=== PATIENT | female | born 1970 | race Caucasian/White ===

== ENCOUNTER → 2018-10-05 17:00 | Outpatient (CLI) | payer OTHER, SELFPAY ==
[2018-10-05 14:53] VITALS: BMI 24.0
[2018-10-08 11:00] LABS: HPV APTIMA, High Risk Negative (Negative)
== END ==
PROVIDERS: Family Provider Family Medicine; PCP Family Medicine; Referring Provider Obstetrics & Gynecology; Visit Provider Obstetrics & Gynecology
DX: Z12.4 Encounter for screening for malignant neoplasm of cervix (principal)
CPT/HCPCS: 87624; 88175; G0145

== ENCOUNTER → 2018-11-02 | Outpatient (CLI) | payer OTHER, SELFPAY ==
[2018-10-05 14:53] VITALS: BMI 24.0
--- NOTE | 2018-11-02 15:24 | BI_ITS ---
MAMMOGRAPHY - BILATERAL SCREENING REASON FOR EXAM: Female, 48 years old. Routine annual screening examination. PERTINENT HISTORY: Non-contributory. TECHNIQUE: Digital bilateral breast gisela (3D mammographic acquisition) in the CC and MLO projections. 2-D mediolateral oblique (MLO) and craniocaudad (CC) views of both breasts were obtained. CAD: Full Field Digital Mammography with Computer Added Detection was performed. COMPARISON: Comparison is made with prior outside examination dated September 14, 2017. FINDINGS: Breast Composition: The breasts are heterogeneously dense, which may obscure small masses. There are no dominant masses or suspicious calcifications. No other significant abnormalities are identified. There has been no significant change since the prior study. BI/SCREENING MAMM (CAD), BILAT IMPRESSION: Stable bilateral screening mammogram. Yearly follow-up mammogram recommended. (A) ASSESSMENT CATEGORY: BIRADS Category 1: Negative. A letter regarding these results will be sent to the patient by the facility within 30 days. Approximately 10% of breast cancers are not detected by mammography. A normal mammogram should not delay biopsy of a clinically suspicious abnormality. [id number] Electronically Signed: Cole Amaya, at 11:18 EDT , Service support ,
== END | disposition home or self-care (01) ==
PROVIDERS: Family Provider Family Medicine; PCP Family Medicine; Referring Provider Obstetrics & Gynecology; Visit Provider Obstetrics & Gynecology
DX: Z12.31 Encounter for screening mammogram for malignant neoplasm of breast (principal)
CPT/HCPCS: 77063; 77067

== ENCOUNTER → 2020-06-14 15:19 | Outpatient (CLI) | payer OTHER, SELFPAY ==
[2018-10-05 14:53] VITALS: BMI 24.0
== END ==
PROVIDERS: PCP Family Medicine; Visit Provider Family Medicine
DX: B34.9 Viral infection, unspecified (principal)
CPT/HCPCS: 87635; U0003

== ENCOUNTER 2020-11-09 06:52 | Day surgery (SDC) | payer BC, SELFPAY ==
[2018-10-05 14:53] VITALS: BMI 24.0
[2020-11-09] MEDS: Lactated Ringers 1,000 ML 100 ML IV (07:15)
[2020-11-09 07:16] VITALS: BP 126/76; PULSE 76; RESP 16; TEMP 36.8; O2SAT 96; BMI 24.5
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
[2020-11-09 08:12] VITALS: BP 101/58; BP 126/76; PULSE 65; RESP 18; TEMP 36.5; O2SAT 99
--- NOTE | 2020-11-09 08:14 | OP.CCLET_ITS ---
11/09/2020 Chavo George [address] [place] [address] Re : Colonoscopy procedure for Barbara Young Dear Dr. George This procedure was performed on Monday, November 09, 2020. My impressions and recommendations are as follows: Impressions : - The entire examined colon is normal on direct and retroflexion views. - No specimens collected. Recommendations : - Discharge patient to home. - Resume previous diet. - Continue present medications. - Repeat colonoscopy in 10 years for screening purposes. My findings are described in the full procedure note, which is enclosed. If I can be of further assistance, please feel free to contact me at Doctor phone number(s): , Work: . Sincerely, Amado Costa MD 11/09/2020 8:14:04 AM This report has been signed electronically.
--- NOTE | 2020-11-09 08:14 | OP.COLON_ITS ---
Patient Name: Barbara Young Procedure Date: 11/09/2020 7:47 AM Date of : 1970 Age: 50 Procedure: Colonoscopy Indications: Screening for colorectal malignant neoplasm Providers: Amado Costa MD Referring MD: Chavo George Medicines: Monitored Anesthesia Care Patient Profile: This is a 50 year old female. Refer to note in patient chart for documentation of history and physical. Last Colonoscopy: none. The patient's first colonoscopy is today. Complications: No immediate complications. Procedure: Pre-Anesthesia Assessment: - Prior to the procedure, a History and Physical was performed, and patient medications and allergies were reviewed. The patient's tolerance of previous anesthesia was also reviewed. The risks and benefits of the procedure and the sedation options and risks were discussed with the patient. All questions were answered, and informed consent was obtained. Prior Anticoagulants: The patient has taken no previous anticoagulant or antiplatelet agents. After reviewing the risks and benefits, the patient was deemed in satisfactory condition to undergo the procedure. After I obtained informed consent, the scope was passed under direct vision. Throughout the procedure, the patient's blood pressure, pulse, and oxygen saturations were monitored continuously. The colonoscope was introduced through the anus and advanced to the cecum, identified by appendiceal orifice and ileocecal valve. The colonoscopy was performed without difficulty. The patient tolerated the procedure well. The quality of the bowel preparation was good. Scope In: 7:55:19 AM Scope Withdrawal Time 0 hours 6 minutes 0 seconds Scope Out: 8:08:25 AM Total Procedure Duration Time 0 hours 13 minutes 6 seconds Findings: The entire examined colon appeared normal on direct and retroflexion views. Impression: - The entire examined colon is normal on direct and retroflexion views. - No specimens collected. Recommendation: - Discharge patient to home. - Resume previous diet. - Continue present medications. - Repeat colonoscopy in 10 years for screening purposes. Procedure Code(s): --- Professional --- 37443, Colonoscopy, flexible; diagnostic, including collection of specimen(s) by brushing or washing, when performed (separate procedure) Diagnosis Code(s): --- Professional --- Z12.11, Encounter for screening for malignant neoplasm of colon CPT copyright 2017 [employer]. All rights reserved. The codes documented in this report are preliminary and upon side stitching machine operator review may be revised to meet current compliance requirements. Amado Costa MD 11/09/2020 8:14:04 AM This report has been signed electronically. Number of Addenda: 0 Note Initiated On: 11/09/2020 7:47 AM
[2020-11-09 08:15] VITALS: BP 101/66; BP 126/76; PULSE 63; RESP 18; O2SAT 98
[2020-11-09 08:20] VITALS: BP 103/69; BP 126/76; PULSE 60; RESP 18; O2SAT 99
[2020-11-09 08:25] VITALS: BP 104/74; BP 126/76; PULSE 57; RESP 18; TEMP 36.7; O2SAT 99
[2020-11-09 09:22] VITALS: BP 126/76
== END 2020-11-09 09:23 | disposition home or self-care (01) ==
LOC: EN 06:53 → AC 06:55
PROVIDERS: PCP Family Medicine; Referring Provider Family Medicine; Visit Provider Surgery
PROC: 0DJD8ZZ Inspection of Lower Intestinal Tract, Via Natural or Artificial Opening Endoscopic (ICD-10-PCS; CPT 45378; principal; 2020-11-09 07:55)
DX: Z12.11 Encounter for screening for malignant neoplasm of colon (principal); F32.9 Major depressive disorder, single episode, unspecified; F41.9 Anxiety disorder, unspecified; F17.210 Nicotine dependence, cigarettes, uncomplicated; Z79.899 Other long term (current) drug therapy
CPT/HCPCS: 45378; 87426; C9803; J7120; J2405

== ENCOUNTER → 2021-01-07 15:28 | Outpatient (CLI) | payer BC, SELFPAY ==
[2021-01-07 17:59] LABS: Absolute Lymphocyte Count 2.58 X10^3/uL (0.83-4.51); Absolute Neutrophil Count 4.3 X10^3/uL (2.0-7.7); Basophil# 0.04 X10^3/uL; Basophil% 0.5 % (0-1); Hematocrit 37.8 % (37-47); Hemoglobin 12.2 g/dL (12.0-15.0); Lymphocyte # 2.58 X10^3/ul (0.83-4.51); Lymphocyte % 34.5 % (19-41); Mean Corp Hgb Conc 32.3 g/dL (32-36); Mean Platelet Vol. 9.1 fl (6.2-12.0); Monocyte# 0.52 X10^3/uL; NRBC Flagged by Analyzer 0 % (0-5); Neutrophil # 4.31 X10^3/uL (2.7-7.7); Neutrophil % 57.7 % (47-70); Platelet Count 394 K/mm3 (150-450); RBC Distribution Width CV 12.1 % (11.6-14.6); RBC Distribution Width SD 39.8 fl (35.1-43.9); White Blood Count 7.5 K/mm3 (4.4-11.0)
[2021-01-07 18:02] LABS: Erythrocyte Sedimentation Rate 21 mm/hr (0-30)
[2021-01-07 18:26] LABS: T4 Free Direct 1.26 ng/dL (0.76-1.46); Thyroid Stim Hormone (TSH) 0.12 uIU/mL (0.358-3.74)
== END ==
PROVIDERS: PCP Family Medicine; Visit Provider Family Medicine
DX: J30.9 Allergic rhinitis, unspecified (principal); E07.89 Other specified disorders of thyroid
CPT/HCPCS: 36415; 84439; 84443; 85025; 85652; 86140

== ENCOUNTER → 2021-01-09 11:32 | Outpatient (CLI) | payer BC, SELFPAY ==
[2021-01-11 21:15] LABS: Anti-Thyroglobulin AB < 1.0 IU/mL (0.0-0.9); Thyroglobulin, Serum Qt. 433.1 ng/mL (1.5-38.5); Thyroid Peroxidase AB < 9 IU/mL (0-34)
== END ==
PROVIDERS: PCP Family Medicine; Referring Provider Family Medicine; Visit Provider Family Medicine
DX: E07.89 Other specified disorders of thyroid (principal)
CPT/HCPCS: 36415; 84432; 86038; 86376; 86800

== ENCOUNTER → 2021-01-11 14:17 | Outpatient (CLI) | payer BC, SELFPAY ==
--- NOTE | 2021-01-11 14:19 | US_ITS ---
STUDY: THYROID ULTRASOUND REASON FOR EXAM: Female, 50 years old. Low ESR hyperactive thyroid TECHNIQUE: Ultrasound evaluation of the thyroid was performed with real-time and static fuentes-scale imaging. COMPARISON: None. FINDINGS: RIGHT LOBE: The right lobe of the thyroid gland measures 5 cm x 1.7 cm x 1.5 cm. There is a heterogeneous echotexture. There is a 5 mm x 5 mm x 4 mm cyst in the lower pole of the right lobe. There is also evidence of a 9 mm x 9 mm x 9 mm hypoechoic solid nodule in the midpole of the right lobe. LEFT LOBE: The left lobe of the thyroid gland measures 4.9 cm x 1.9 cm x 1.6 cm. There is a heterogeneous echotexture. There are no demonstrated solid, cystic or complex lesions. ISTHMUS: The isthmus measures 3.4 mm. There is a benign-appearing lymph node inferior to the thyroid measuring 1.3 cm x 1 cm x 0.7 cm. US/Thyroid IMPRESSION: Heterogeneous appearance of the thyroid lobes bilaterally. 9 mm x 9 mm x 9 mm heterogeneous solid nodule in the midpole of the right lobe. Electronically Signed: Cole Amaya MD at 15:14 EDT , Service support ,
== END ==
PROVIDERS: PCP Family Medicine; Referring Provider Family Medicine; Visit Provider Family Medicine
DX: E07.89 Other specified disorders of thyroid (principal)
CPT/HCPCS: 76536

== ENCOUNTER → 2021-01-14 09:16 | Outpatient (CLI) | payer BC, SELFPAY ==
--- NOTE | 2021-01-14 09:21 | RAD_ITS ---
STUDY: X-RAY - SOFT TISSUE NECK REASON FOR EXAM: Female, 50 years old. SWALLOWING DIFFICULTY TECHNIQUE: view(s) of the neck were obtained. COMPARISON: None. FINDINGS: Normal visualized nasopharynx, oropharynx, hypopharynx. Normal epiglottis. Normal visualized subglottic tracheal air column. Normal prevertebral soft tissue structures. Normal visualized osseous structures. Slight narrowing seen at the level of C6-7. The soft tissue structures are unremarkable. RAD/Neck for Soft Tissue IMPRESSION: Normal x-ray soft tissue neck. Electronically Signed: Cecily Swan, at 14:11 EDT Tel , Service support ,
--- NOTE | 2021-01-14 09:21 | RAD_ITS ---
STUDY: X-RAY CHEST REASON FOR EXAM: Female, 50 years old. CHEST PAIN TECHNIQUE: 2 views COMPARISON: 10/27/2015. FINDINGS: The lungs are clear and expanded. There is no demonstrated pleural abnormality. Normal size heart. Normal mediastinum and dede. Normal visualized pulmonary arteries. Normal visualized aortic arch and descending thoracic aorta. Normal visualized thoracic spine. Normal visualized ribs, clavicles, and shoulders. There is no demonstrated abnormality of the visualized soft tissue structures of the upper abdomen. RAD/Chest PA and Lateral IMPRESSION: Normal x-ray examination of the chest. Unchanged since October 2015. Electronically Signed: Cecily Swan, at 14:09 EDT Tel , Service support ,
== END ==
PROVIDERS: PCP Family Medicine; Referring Provider Family Medicine; Visit Provider Family Medicine
DX: R07.9 Chest pain, unspecified (principal); R13.10 Dysphagia, unspecified
CPT/HCPCS: 70360; 71046

== ENCOUNTER → 2021-01-23 09:48 | Outpatient (CLI) | payer BC, SELFPAY ==
--- NOTE | 2021-01-23 09:49 | NM_ITS ---
CLINICAL: 50-year-old female with reported history of clinical thyroiditis and thyroid nodularity. I-123 THYROID UPTAKE and SCAN COMPARISON: Thyroid ultrasound report 01/11/2021 FINDINGS: The patient was administered a 305 uCi I-123 capsule by mouth. The 4-hour I-123 radioactive iodine thyroidal uptake was calculated to be 1.5 % (normal 5 to 25 %). The 24-hour I-123 radioactive iodine thyroidal uptake was calculated to be 0.3 % (normal 5 to 40 %). The I-123 thyroid scan demonstrates nonvisualization of the thyroid colloid commensurate with the IODINE uptake values. NM/Thyroid Uptake Single or Mult IMPRESSION: 1. MARKEDLY ABNORMAL, DECREASED 4- and 24-hour I-123 radioactive iodine thyroidal uptakes. 2. The I-123 thyroid scan in conjunction with the calculated IODINE uptake values is most consistent with the presence of the injurious phase of subacute thyroiditis. (Dallin et al, Endocrinol Rev 1: 411, 1980). Electronically Signed: Gurdeep Devine DO at 22:53 EDT Tel , Service support ,
== END ==
PROVIDERS: PCP Family Medicine; Referring Provider Family Medicine; Visit Provider Family Medicine
DX: E06.9 Thyroiditis, unspecified (principal)
CPT/HCPCS: 78012; A9516

== ENCOUNTER → 2021-03-25 17:03 | Outpatient (CLI) | payer BC, SELFPAY ==
[2021-03-25 19:39] LABS: Probe Check PASS; Specimen Processing Control PASS
== END ==
PROVIDERS: PCP Family Medicine; Referring Provider Family Medicine; Visit Provider Family Medicine
DX: Z20.822 Contact with and (suspected) exposure to COVID-19 (principal)
CPT/HCPCS: 87635; U0005; U0003

== ENCOUNTER → 2021-04-23 15:06 | Outpatient (CLI) | payer BC, SELFPAY ==
[2021-04-23 15:21] LABS: Bacteria 0 SEEN /hpf (None Seen); Mucous, Urine 0 SEEN /hpf (<or=2+); Red Blood Cells-Urine 0 SEEN /hpf (0-5); Squamous Epithelial Cells - UA 0 SEEN /hpf (5-10); White Blood Cells 0 SEEN /hpf (0-5)
[2021-04-23 15:35] LABS: Color, Urine Yellow (Yellow); Glucose, Dipstick Normal (Normal); Ketone-Dipstick Negative (Negative); Leukocyte Esterase-Dipstick Negative /ul (Negative); Nitrite-Dipstick Negative (Negative); Occult Blood-Urine 10 /ul (Negative); Protein-Dipstick Negative (Negative); Urine Bilirubin Dipstick Negative (Negative); Urine Clarity Clear (Clear); Urine Urobilinogen Normal (Normal)
== END ==
PROVIDERS: PCP Family Medicine; Referring Provider Physician Assistant; Visit Provider Physician Assistant
DX: R30.9 Painful micturition, unspecified (principal); R35.0 Frequency of micturition; R10.2 Pelvic and perineal pain
CPT/HCPCS: 81001; 87086; 87088

== ENCOUNTER 2021-06-10 14:39 | Emergency (ER) | payer BC, SELFPAY ==
[2021-06-10 14:39] VITALS: BP 121/93; PULSE 98; RESP 16; TEMP 37.7; O2SAT 96; BMI 24.4
--- NOTE | 2021-06-10 15:22 | US_ITS ---
STUDY: ULTRASOUND OF THE FEMALE PELVIS - COMPLETE REASON FOR EXAM: Female, 50 years old. pelvic pain-RLQ TECHNIQUE: Transabdominal COMPARISON: None. FINDINGS: The uterus is retroverted and is in a midline position. The uterus measures 3.9 x 4 .3 cm. There is a Nabothian cyst of the cervix. The endometrium measures 2 mm in thickness, and is hyperechoic. There is no demonstrated endometrial mass. There is no demonstrated myometrial mass. I.U.D. - The patient does not have an I.U.D. calcifications are visualized in the uterus. These may be related to fibroids. The right ovary is visualized. The right ovary measures 2.5x1.8 cm. There is no right ovarian cyst or ovarian mass. There is no visualized right adnexal mass or complex lesion. There is normal arterial and normal venous vascularity. The left ovary is visualized. The left ovary measures 2x1.3 cm. There is no left ovarian cyst or ovarian mass. There is no visualized left adnexal mass or complex lesion. There is normal arterial and normal venous vascularity. There is minimal fluid in the cul-de-sac. US/Transvaginal Non- IMPRESSION: There is a Nabothian cyst of the cervix. There is minimal fluid in the cul-de-sac. Electronically Signed: Lloyd Neely MD at 17:14 EST , Service support ,
--- NOTE | 2021-06-10 15:35 | EDS_ITS ---
HPI HPI - Female History of Present Illness Chief Complaint: Abd Pain Narrative Narrative: 50-year-old female presenting with pelvic pressure. She states it is more on the right than the left but sometimes does radiate to the left. She states this has been an ongoing issue. She was previously seen for urinary symptoms but states she had been on antibiotics for UTI however her urinalysis ended up being negative and these were stopped. Over the course of the last 3 days she has had a low-grade fever of 101. She was exposed to COVID-19 last week but has tested negative since then. She does not have any shortness of breath or cough. She denies chest pain. She denies vomiting, diarrhea, constipation. She denies vaginal complaints. Patient does states she has a history of ectopic in the past. She status post tubal ligation. She does not have a concern for at this time. PFSH PFS Medical History Anxiety and depression Medical History no medical history Home Medications hydroxyzine HCl 25 mg tablet 10 mg PO QHS 10/05/18 [History Last Taken Unknown] sertraline 100 mg tablet 150 mg PO QHS 10/05/18 [History Last Taken Unknown] Allergy/AdvReac Type Severity Reaction Status Date / Time No Known Allergies Allergy Verified 06/10/21 14:43 Family History Mother CVA (cerebral vascular accident) Surgical History H/O tubal ligation Social History Smoking Status: Current every day smoker tobacco type: cigarettes alcohol intake: never substance use type: does not use caffeine: Yes what type of physical activity do you participate in: yoga frequency: 1-2 times per week seatbelt use: always do you feel safe at home: Yes additional social history: Vince Ko Patient works for [employer] ROS ROS ED Constitutional Constitutional ED: Reports fever(s); Denies chills Eyes Eyes: Denies blurry vision ENT ENT ED: Denies rhinorrhea or sore throat Cardiovascular Cardiovascular: Denies chest pain or palpitations Respiratory/Chest Respiratory/Chest: Denies dyspnea Gastrointestinal Gastrointestinal: Reports abdominal pain; Denies constipation, diarrhea or vomiting Genitourinary Genitourinary ED: Reports dysuria and urinary frequency Musculoskeletal Musculoskeletal: Denies arthralgias or myalgias Integumentary Denies rash Neurologic Neurologic: Reports headache(s); Denies paresthesias or weakness Psychiatric Psychiatric: Denies anxiety or depression EXAM Physical Exam Const Vital Signs: 06/10/21 14:39 06/10/21 17:12 Temperature 100 F H 98.5 F Temperature Source Temporal Oral Pulse Rate 98 Respiratory Rate 16 Blood Pressure 121/93 H Blood Pressure Mean 102 Pulse Ox 96 Oxygen Delivery Method Room Air Positive well nourished General Appearance ED: NAD; Negative for pallor HEENT Reports moist mucous membranes Negative for trauma Resp normal respiratory effort and clear to auscultation bilaterally Narrative: Tenderness palpation right suprapubic area laterally. Abdomen nonperitoneal. No McBurney point tenderness. Back/Spine no CVA tenderness Neuro oriented x3 Sensorium / Orientation: alert Psych mental status grossly normal Skin General Skin Exam: Negative for jaundice or pallor MDM MDM MDM Narrative Medical decision making narrative: Patient presenting with low-grade fever as well as abdominal pain. It does seem to be pelvic in nature on examination. Patient is not having any vaginal complaints. She does complain of some dysuria and frequency. Patient was previously treated for urinary tract infection however she was told to stop the antibiotic if the culture was negative. Her CBC shows that she is leukopenic and lymphopenic. She did express some concern that she was exposed to Covid and that might be why she has fevers. She is already tested at home a couple of times and these were negative. Her rapid Covid today is also negative. Patient does not have any respiratory complaints or chest pain. Or chest pain. Her renal function and electrolytes are normal. LFTs are normal. Urinalysis is negative for infection. I did obtain a transvaginal ultrasound which showed a nabothian cyst of the cervix. Not sure this explains her pain so I did obtain a CT of the abdomen pelvis with IV contrast which showed no acute abnormalities. I did offer to do a Covid PCR for the patient however she declines. At this point with a negative work-up I feel she is safe to be discharged home. She will return for new or worsening symptoms. Impression: 1. Abdominal pain 2. Febrile illness 3. Exposure to COVID-19 4. Nabothian cyst of the cervix Lab Data Attestation: I reviewed the patient's lab results. Labs: Laboratory Results - last 24 hr 06/10/21 06/10/21 06/10/21 15:49 16:00 16:00 WBC 4.3 L RBC 4.39 Hgb 13.1 Hct 37.8 MCV 86.1 MCH 29.8 MCHC 34.7 RDW Std Deviation 42.1 RDW Coeff of Justin 13.3 Plt Count 253 MPV 8.8 Immature Gran % (Auto) 0.200 Neut % (Auto) 77.6 H Lymph % (Auto) 14.5 L Rabun % (Auto) 7.5 Eos % (Auto) 0.0 Baso % (Auto) 0.2 Absolute Neuts (auto) 3.3 Absolute Lymphs (auto) 0.62 L Nucleated RBC % 0 Sodium 132 L Potassium 4.0 Chloride 103 Carbon Dioxide 23.0 Anion Gap 6 BUN 8 Creatinine 0.88 Estim Creat Clear Calc 73.55 Est GFR (MDRD) Af Amer 87 Est GFR (MDRD) Non-Af 72 BUN/Creatinine Ratio 9.1 L Glucose 103 Calcium 8.9 Total Bilirubin 0.20 AST 28 ALT 46 Alkaline Phosphatase 79 Total Protein 7.5 Albumin 3.9 Globulin 3.6 Albumin/Globulin Ratio 1.1 HCG, Quant Urine Color Yellow Urine Clarity Sl. Cloudy Urine pH 6.5 Ur Specific [place] 1.010 Urine Protein Negative Urine Glucose (UA) Normal Urine Ketones Negative Urine Occult Blood 25 H Urine Nitrite Negative Urine Bilirubin Negative Urine Urobilinogen Normal Ur Leukocyte Esterase Negative Urine RBC 0 SEEN Urine WBC 0 SEEN Ur Squamous Epith Cells 0 SEEN Urine Bacteria RARE Urine Mucus 0 SEEN 06/10/21 16:00 WBC RBC Hgb Hct MCV MCH MCHC RDW Std Deviation RDW Coeff of Justin Plt Count MPV Immature Gran % (Auto) Neut % (Auto) Lymph % (Auto) Rabun % (Auto) Eos % (Auto) Baso % (Auto) Absolute Neuts (auto) Absolute Lymphs (auto) Nucleated RBC % Sodium Potassium Chloride Carbon Dioxide Anion Gap BUN Creatinine Estim Creat Clear Calc Est GFR (MDRD) Af Amer Est GFR (MDRD) Non-Af BUN/Creatinine Ratio Glucose Calcium Total Bilirubin AST ALT Alkaline Phosphatase Total Protein Albumin Globulin Albumin/Globulin Ratio HCG, Quant < 1 Urine Color Urine Clarity Urine pH Ur Specific [place] Urine Protein Urine Glucose (UA) Urine Ketones Urine Occult Blood Urine Nitrite Urine Bilirubin Urine Urobilinogen Ur Leukocyte Esterase Urine RBC Urine WBC Ur Squamous Epith Cells Urine Bacteria Urine Mucus Radiography Diagnostic Testing: Clinical Impression(s) from Imaging Studies Transvaginal US 06/10/21 15:22 IMPRESSION: There is a Nabothian cyst of the cervix. There is minimal fluid in the cul-de-sac. Electronically Signed: Lloyd Neely MD at 17:14 EST , Service support , Abdomen/Pelvis CT 06/10/21 17:19 Discharge Plan Triage Chief Complaint: Abd Pain ED Provider: Channing Parkinson Dx/Rx/DC Orders Instructions: ED Abdominal Pain Unkn Cause Fem, ED Fever Control (Adult) Prescriptions: No Action hydroxyzine HCl 25 mg tablet 10 mg PO QHS RF: 0 sertraline [Zoloft] 100 mg tablet 150 mg PO QHS RF: 0 Primary Care Provider: Chavo George Referrals: Chavo George MD [Primary Care Provider] - Disposition Disposition: Home, Self Care Discharge Date/Time: 06/10/21 18:21
[2021-06-10] MEDS: Acetaminophen 500 MG Tablet 1000 MG PO (15:41)
[2021-06-10 15:52] LABS: Mucous, Urine 0 SEEN /hpf (<or=2+); Red Blood Cells-Urine 0 SEEN /hpf (0-5); Squamous Epithelial Cells - UA 0 SEEN /hpf (5-10); White Blood Cells 0 SEEN /hpf (0-5)
[2021-06-10 15:56] LABS: Color, Urine Yellow (Yellow); Glucose, Dipstick Normal (Normal); Ketone-Dipstick Negative (Negative); Leukocyte Esterase-Dipstick Negative /ul (Negative); Nitrite-Dipstick Negative (Negative); Occult Blood-Urine 25 /ul (Negative); Protein-Dipstick Negative (Negative); Urine Bilirubin Dipstick Negative (Negative); Urine Clarity Sl. Cloudy (Clear); Urine Urobilinogen Normal (Normal); Urine pH 6.5 (5.0 - 8.0)
[2021-06-10 16:09] LABS: Absolute Lymphocyte Count 0.62 X10^3/uL (0.83-4.51); Absolute Neutrophil Count 3.3 X10^3/uL (2.0-7.7); Basophil# 0.01 X10^3/uL; Basophil% 0.2 % (0-1); Hematocrit 37.8 % (37-47); Hemoglobin 13.1 g/dL (12.0-15.0); Lymphocyte # 0.62 X10^3/ul (0.83-4.51); Lymphocyte % 14.5 % (19-41); Mean Corp Hgb Conc 34.7 g/dL (32-36); Mean Corpuscular Hgb 29.8 pg (27.0-32.0); Mean Corpuscular Volume 86.1 fL (81-99); Mean Platelet Vol. 8.8 fl (6.2-12.0); Monocyte# 0.32 X10^3/uL; Monocyte% 7.5 % (0-10); NRBC Flagged by Analyzer 0 % (0-5); Neutrophil # 3.32 X10^3/uL (2.7-7.7); Neutrophil % 77.6 % (47-70); Platelet Count 253 K/mm3 (150-450); RBC Distribution Width CV 13.3 % (11.6-14.6); RBC Distribution Width SD 42.1 fl (35.1-43.9); Red Blood Count 4.39 M/mm3 (4.2-5.4); White Blood Count 4.3 K/mm3 (4.4-11.0)
[2021-06-10 16:18] LABS: Bacteria RARE /hpf (None Seen)
[2021-06-10 16:36] LABS: ALB/GLOB Ratio 1.1 RATIO (0.9-2.4); AST(SGOT) 28 U/L (15-37); Alanine Aminotransfer ALT/SGPT 46 U/L (13-56); Albumin, Serum 3.9 g/dL (3.2-5.0); Alkaline Phosphatase 79 U/L (45-117); Anion Gap 6 (5-15); BUN 8 mg/dL (7-18); BUN/Creat Ratio 9.1 RATIO (10-20); Calcium,Total 8.9 mg/dL (8.5-10.1); Chloride 103 mmol/L (98-107); Creatinine, Serum 0.88 mg/dL (0.55-1.02); EST Glomerular Filtration Rate 72 mL/min (>60); Est Glom Filt Rate - Afr Amer 87 mL/min (>60); Estimated Creatinine Clearance 73.55 ml/min; Globulin 3.6 g/dL (2.2-4.2); Glucose 103 mg/dL (74-106); Protein, Total 7.5 g/dL (6.4-8.2); Sodium Level 132 mmol/L (136-145)
[2021-06-10 16:37] LABS: hCG Titer Quant., Serum < 1 mIU/mL (1-3)
[2021-06-10 17:12] VITALS: TEMP 36.9
--- NOTE | 2021-06-10 17:19 | CT_ITS ---
STUDY: CT Abdomen And Pelvis W/ Contrast Injection 06/10/2021 6:00 PM REASON FOR EXAM: Female, 50 years old. Technologist Notes pelvic pressure R>L being treated for UTI. Fever. H/o ectopic preg. RLQ abdominal pain TECHNIQUE: Transaxial images were obtained without oral contrast, and with IV 100mL Isovue-300 intravenous contrast. Individualized dose optimization techniques were used for this CT. COMPARISON: None. FINDINGS: The visualized lung bases are unremarkable. The visualized portions of the heart are within normal limits. There is hepatomegaly with diffuse hepatic enlargement. Normal gallbladder and extrahepatic biliary system. Normal spleen. Normal pancreas. Simple cyst in the right and left lobe of liver. No follow-up required. Normal bilateral adrenal glands. No acute findings of the right kidney. No acute findings of the left kidney. Retroaortic left renal vein. Normal visualized stomach. Normal small intestine. Stool throughout the colon. The appendix is visualized and appears normal. There are calcifications of the abdominal aorta. This is consistent for atherosclerotic disease. There is no abdominal aortic aneurysm. Normal inferior vena cava. Subcentimeter mesenteric lymph nodes. Normal urinary bladder. Normal visualized uterus. There are bilateral tubal ligation clips. There is an umbilical hernia containing fat. Normal osseous structures. IMPRESSION: (NOT LISTED IN ORDER OF SIGNIFICANCE) Enlarged liver. The appendix is visualized and appears normal. Other findings as above. Electronically Signed: Lloyd Neely MD at 18:02 EST , Service support , CT/Abdomen/Pelvis W IV Cont ONLY
== END 2021-06-10 18:21 | disposition home or self-care (01) ==
PROVIDERS: Emergency Provider Student in an Organized Health Care Education/Training Program; PCP Family Medicine
DX: R10.2 Pelvic and perineal pain (principal); R50.9 Fever, unspecified; N88.8 Other specified noninflammatory disorders of cervix uteri; Z87.59 Personal history of other complications of pregnancy, childbirth and the puerperium; F41.9 Anxiety disorder, unspecified; F32.A Depression, unspecified; Z79.899 Other long term (current) drug therapy; Z20.822 Contact with and (suspected) exposure to COVID-19
CPT/HCPCS: 74177; 76830; 80053; 81001; 84702; 85025; 87426; 87635; 93976; 99284; Q9967; U0005; A4216; U0003

== ENCOUNTER → 2022-04-29 | Outpatient (CLI) | payer BC, SELFPAY | END | disposition home or self-care (01) | LOC: LABSPEC 16:05 | PROVIDERS: PCP Family Medicine; Visit Provider Obstetrics & Gynecology | DX: N32.81 Overactive bladder (principal) | CPT/HCPCS: 87086; 87088 ==

== ENCOUNTER → 2022-05-15 | Outpatient (CLI) | payer BC, SELFPAY ==
--- NOTE | 2022-05-15 11:31 | US_ITS ---
STUDY: ULTRASOUND OF THE FEMALE PELVIS - COMPLETE REASON FOR EXAM: Female, 51 years old. Pelvic pain LMP: Unknown. TECHNIQUE: Transabdominal and Transvaginal TECHNICAL QUALITY: Adequate. COMPARISON: None. FINDINGS: The uterus has a mobile lower uterine segment. The uterus measures 4.3 x 4.3 x 2.8 cm. Normal uterine cervix. The endometrium measures 2 mm in thickness, and is hyperechoic. There is no demonstrated endometrial mass. There is no demonstrated myometrial mass. I.U.D. - The patient does not have an I.U.D. The right ovary is visualized. The right ovary measures 2.1 x 1.7 x 1.4 cm. There is no right ovarian cyst or ovarian mass. There is no visualized right adnexal mass or complex lesion. There is normal arterial and normal venous vascularity. The left ovary is visualized. The left ovary measures 2.0 x 1.4 x 1.2 cm. There is no left ovarian cyst or ovarian mass. There is no visualized left adnexal mass or complex lesion. There is normal arterial and normal venous vascularity. There is no fluid in the cul-de-sac. The pre void volume of the bladder was 448 ml. The post void volume of the bladder was less than 10 ml. US/Transvaginal Non- IMPRESSION: No suspicious sonographic findings Electronically Signed: Espinoza Conti MD at 12:30 EDT ,
--- NOTE | 2022-05-15 11:31 | US_ITS ---
STUDY: ULTRASOUND OF THE FEMALE PELVIS - COMPLETE REASON FOR EXAM: Female, 51 years old. Pelvic pain LMP: Unknown. TECHNIQUE: Transabdominal and Transvaginal TECHNICAL QUALITY: Adequate. COMPARISON: None. FINDINGS: The uterus has a mobile lower uterine segment. The uterus measures 4.3 x 4.3 x 2.8 cm. Normal uterine cervix. The endometrium measures 2 mm in thickness, and is hyperechoic. There is no demonstrated endometrial mass. There is no demonstrated myometrial mass. I.U.D. - The patient does not have an I.U.D. The right ovary is visualized. The right ovary measures 2.1 x 1.7 x 1.4 cm. There is no right ovarian cyst or ovarian mass. There is no visualized right adnexal mass or complex lesion. There is normal arterial and normal venous vascularity. The left ovary is visualized. The left ovary measures 2.0 x 1.4 x 1.2 cm. There is no left ovarian cyst or ovarian mass. There is no visualized left adnexal mass or complex lesion. There is normal arterial and normal venous vascularity. There is no fluid in the cul-de-sac. The pre void volume of the bladder was 448 ml. The post void volume of the bladder was less than 10 ml. US/Pelvic (Non ) IMPRESSION: No suspicious sonographic findings Electronically Signed: Espinoza Conti MD at 12:30 EDT ,
--- NOTE | 2022-05-15 12:13 | BI_ITS ---
MAMMOGRAPHY - BILATERAL SCREENING 3-D TOMOSYNTHESIS REASON FOR EXAM: Female, 51 years old. Routine screening PERTINENT HISTORY: No significant family history. TECHNIQUE: 2-D mammograms and 3-D Tomosynthesis of the breast (s) were performed. CAD was performed. COMPARISON: 2019 FINDINGS: The breast composition is heterogeneously dense that can obscure small breast masses. Scattered benign calcifications are seen. No dense spiculated masses or suspicious microcalcifications are identified. No architectural distortion is identified. There is no skin thickening or retraction. There has been no significant change since the prior study. BI/SCRN MAMM (CAD)W/MIGUEL ANGEL BILAT IMPRESSION: No mammographic signs of malignancy. Routine yearly mammograms recommended. ASSESSMENT CATEGORY: BIRADS Category 2: Benign. A letter regarding these results will be sent to the patient by the facility within 30 days. FOLLOW UP RECOMMENDATION: Yearly follow up mammogram recommended. (A) Approximately 10% of breast cancers are not detected by mammography. A normal mammogram should not delay biopsy of a clinically suspicious abnormality. Electronically Signed: Espinoza Conti MD at 12:47 EDT ,
== END | disposition home or self-care (01) ==
PROVIDERS: PCP Family Medicine; Referring Provider Obstetrics & Gynecology; Visit Provider Obstetrics & Gynecology
DX: R10.2 Pelvic and perineal pain (principal); G89.29 Other chronic pain; Z12.31 Encounter for screening mammogram for malignant neoplasm of breast
CPT/HCPCS: 76830; 76856; 77063; 77067

== ENCOUNTER → 2022-07-10 | Outpatient (CLI) | payer BC, SELFPAY ==
--- NOTE | 2022-07-10 13:48 | CT_ITS ---
STUDY: LOW DOSE CT LUNG CANCER SCREENING REASON FOR EXAM: Female, 51 years old. Tobacco abuse Counseling. Patient smokes half a pack per day for 15 years. RADIATION DOSAGE (If Supplied By Facility): CTDIvol = ( 2.39 ) mGy, DLP = ( 78.62 ) mGycm TECHNIQUE: No contrast was administered. Low dose technique was utilized (average mAS-38 and kVp 120). 1.25 mm axial source images with a slice interval of 1.25-mm were reconstructed in lung windows. 2.5 mm axial source images with a slice interval of 2.5-mm were reconstructed in lung windows. 5.0 mm axial source images with a slice interval of 5.0-mm were reconstructed in soft tissue windows. COMPARISON: None. NODULES: No suspicious nodules are seen. Emphysema: Hyperinflation. Emphysematous changes. Endobronchial lesion: Unremarkable Aorta: Unremarkable CORONARY ARTERIES: Coronary artery calcification is not seen. Heart: Unremarkable Pulmonary artery: Unremarkable Mediastinal nodes: Small benign-appearing mediastinal lymph nodes. Other chest and abdominal findings: CT/Low Dose CT Lung Screening IMPRESSION: Lung-RADS category 2 - Continue annual screening with LDCT in 12 months. IMPORTANT NOTES FOR USE: ACR Lung-RADS Version 1.1 Assessment Categories Release Date: 2018 Category: Coded 0-4 bases on nodule(s) with highest degree of suspicion. Negative screen is defined as categories 1 and 2; a positive screen is defined as categories 3 and 4. Category 3 and 4A nodules that are unchanged on interval CT should be coded as category 2, and individuals returned to screening in 12 months. Category 4X: Category 3 or 4 nodules with additional imaging findings that increase the suspicion of lung cancer, such as spiculation, GGN that doubles in size in 1 year, enlarged lymph notes, etc. Category Modifiers: S (significant finding unrelated to lung cancer) Electronically Signed: Cole Amaya MD at 8:39 EST ,
== END | disposition home or self-care (01) ==
LOC: CT 13:47
PROVIDERS: PCP Family Medicine; Referring Provider Family Medicine; Visit Provider Family Medicine
DX: Z12.2 Encounter for screening for malignant neoplasm of respiratory organs (principal); F17.210 Nicotine dependence, cigarettes, uncomplicated; Z71.6 Tobacco abuse counseling
CPT/HCPCS: 71271

== ENCOUNTER → 2023-04-30 | Outpatient (CLI) | payer OTHER, SELFPAY ==
--- NOTE | 2023-04-30 12:40 | BI_ITS ---
MAMMOGRAPHY - BILATERAL SCREENING REASON FOR EXAM: Female, 52 years old. Routine annual screening examination. PERTINENT HISTORY: Non-contributory. TECHNIQUE: Digital bilateral breast miguel angel (3D mammographic acquisition) in the CC and MLO projections. 2-D mediolateral oblique (MLO) and craniocaudad (CC) views of both breasts were obtained. CAD: Full Field Digital Mammography with Computer Added Detection was performed. COMPARISON: Comparison is made with prior study May 15, 2022 and November 02, 2018. FINDINGS: Breast Composition: The breasts are heterogeneously dense, which may obscure small masses. There are no dominant masses or suspicious calcifications. No other significant abnormalities are identified. There has been no significant change since the prior study. BI/SCRN MAMM (CAD)W/MIGUEL ANGEL BILAT IMPRESSION: Stable bilateral screening mammogram. Yearly follow-up mammogram recommended. (A) ASSESSMENT CATEGORY: BIRADS Category 1: Negative. A letter regarding these results will be sent to the patient by the facility within 30 days. Approximately 10% of breast cancers are not detected by mammography. A normal mammogram should not delay biopsy of a clinically suspicious abnormality. [id number] Electronically Signed: Cole Amaya MD at 14:57 EDT ,
[2023-05-05 16:09] LABS: HPV APTIMA, High Risk Negative (Negative)
== END | disposition home or self-care (01) ==
PROVIDERS: PCP Family Medicine; Referring Provider Obstetrics & Gynecology; Visit Provider Obstetrics & Gynecology
DX: Z12.31 Encounter for screening mammogram for malignant neoplasm of breast (principal)
CPT/HCPCS: 77063; 77067; 87624; 88175; G0145

== ENCOUNTER → 2023-09-09 | Outpatient (CLI) | payer OTHER, SELFPAY ==
--- NOTE | 2023-09-09 13:20 | CT_ITS ---
STUDY: LOW DOSE CT LUNG CANCER SCREENING REASON FOR EXAM: Female, 53 years old. Last 2021, and gt; 30pkr, current smoking RADIATION DOSAGE (If Supplied By Facility): CTDIvol = ( 3.02 ) mGy, DLP = ( 103.45 ) mGycm TECHNIQUE: No contrast was administered. Low dose technique was utilized (average mAS-38 and kVp 120). 1.25 mm axial source images with a slice interval of 1.25-mm were reconstructed in lung windows. 2.5 mm axial source images with a slice interval of 2.5-mm were reconstructed in lung windows. 5.0 mm axial source images with a slice interval of 5.0-mm were reconstructed in soft tissue windows. COMPARISON: Comparison is made with prior study dated April 10, 2022. NODULES: No suspicious nodules are seen. Emphysema: Hyperinflation. Mild degree of emphysematous changes. Endobronchial lesion: None Aorta: Unremarkable CORONARY ARTERIES: Coronary artery calcification is not seen. Heart: Unremarkable Pulmonary artery: Unremarkable Mediastinal nodes: Small benign-appearing mediastinal lymph nodes. Other chest and abdominal findings: CT/Low Dose CT Lung Screening IMPRESSION: Lung-RADS category 2 - Continue annual screening with LDCT in 12 months. IMPORTANT NOTES FOR USE: ACR Lung-RADS Version 1.1 Assessment Categories Release Date: 2018 Category: Coded 0-4 bases on nodule(s) with highest degree of suspicion. Negative screen is defined as categories 1 and 2; a positive screen is defined as categories 3 and 4. Category 3 and 4A nodules that are unchanged on interval CT should be coded as category 2, and individuals returned to screening in 12 months. Category 4X: Category 3 or 4 nodules with additional imaging findings that increase the suspicion of lung cancer, such as spiculation, GGN that doubles in size in 1 year, enlarged lymph notes, etc. Category Modifiers: S (significant finding unrelated to lung cancer) Electronically Signed: Cole Amaya MD at 14:00 EST ,
--- OUTSIDE RECORDS SUMMARY | 2023-09-09 14:19 | XMS RPT_ITS | CCD ---
Author Name Unknown Address [address] [place] [address] Organization [facility] Care Team Providers Care Craft Coordinator Name Role Phone MELONY GOLDSMITH Unavailable Unavailable MELONY GOLDSMITH Unavailable Unavailable Allergies Allergy Classification Reported Allergen(s) Allergy Type Date of Onset Reaction(s) Facility (1 source) Seasonal allergy; Translations: [SEASONAL ALLERGIES] Propensity to adverse reactions (disorder) 2 AOF [facility] Repository Problems Problem Classification Problem Date Documented Da te Episodic/Chronic Unclassified (1 source) Encounter for screening mammogram for malignant neoplasm of breast; Translations: [Encounter for screening mammogram for malignant neoplasm of breast] Onset: 09-14-2017 Episodic Results Test Name Value Interpretation Reference Range Facil ity Encounters Encounter Date Encounter Type Care Provider Facility Start: 09-14-2017 End: 09-14-2017 [address] [facility] Summary Purpose Family History No Family History Records Found Advance Directives No Advanced Directives Records Found Additional Source Comments INFORMATION SOURCE (unrecogn ized section and content) FOR RECORDS PERTAINING TO PATIENTS WHO ARE OR HAVE BEEN ENROLLED IN A CHEMICAL DEPENDENCY/SUBSTANCEABUSE PROGRAM, SOME INFORMATION MAY BE OMITTED. This clinical summary was aggregated from multiple sources. Caution should be exercised in using it in the provision of clinical care. This summary normalizes information from multiple sources, and as a consequence, information in this document may materially change the coding, format and clinical context of patient data. In addition, data may be omitted in some cases. CLINICAL DECISIONS SHOULD BE BASED ON THE PRIMARY CLINICAL RECORDS. [employer] provides no warranty or guarantee of the accuracy or completeness of information in this document.
== END | disposition home or self-care (01) ==
LOC: CT 13:18
PROVIDERS: PCP Family Medicine; Referring Provider Family Medicine; Visit Provider Family Medicine
DX: Z12.2 Encounter for screening for malignant neoplasm of respiratory organs (principal); F17.210 Nicotine dependence, cigarettes, uncomplicated
CPT/HCPCS: 71271

== ENCOUNTER 2023-11-06 19:25 | Emergency (ER) | payer OTHER, SELFPAY ==
[2023-11-06 19:26] VITALS: BP 173/98; PULSE 89; RESP 18; TEMP 36.4; O2SAT 99; BMI 26.4
--- NOTE | 2023-11-06 19:45 | EX.ED.VIS.PS ---
HPI HPI - Psych History of Present Illness Chief Complaint: Suicidal Detail of Chief Complaint: Depression and suicidal ideation Informant: patient Narrative Narrative: Patient presents to the emergency department complaint depression and suicidal ideation. Patient states that 2 nights ago she took an overdose of hydroxyzine 10 mg tablets she took over 20 tablets and just went to sleep. This was an attempt to harm herself. Patient actually spoke to her psychiatrist yesterday but was not truthful about how she was feeling. Tonight she did not feel safe. She drank 1 beer and took for 5 more tablets of hydroxyzine. Patient denies any auditory or visual hallucinations. Denies homicidal ideation. Denies recent illness. [facility] Medical History Anxiety and depression Home Medications hydroxyzine HCl 25 mg tablet 10 mg PO QHS PRN anxiety 10/05/18 [History Last Taken Unknown] sertraline 100 mg tablet (Zoloft) 100 mg PO QHS 10/05/18 [History Last Taken Unknown] aripiprazole 5 mg tablet 2.5 mg PO QPM 11/06/23 [History Last Taken Unknown] Allergy/AdvReac Type Severity Reaction Status Date / Time No Known Allergies Allergy Verified 11/06/23 19:34 Family History (Updated 04/30/23 @ 13:33 by May Calvillo) Mother CVA (cerebral vascular accident) Father Cancer Liver and Lung Surgical History H/O tubal ligation Social History Smoking Status: Current every day smoker tobacco type: cigarettes alcohol intake: never substance use type: does not use caffeine: Yes what type of physical activity do you participate in: none seatbelt use: always do you feel safe at home: Yes additional social history: Vince Ko Patient works for [email or web address] ROS ROS ED Review of Systems ROS Unobtainable: other Constitutional Constitutional ED: Reports lethargy; Denies chills, fever(s), sweats or weight loss Eyes Eyes: Denies blurry vision, change in vision or diplopia ENT ENT ED: Denies rhinorrhea or sore throat Cardiovascular Cardiovascular: Denies chest pain, orthopnea or racing heartbeat Respiratory/Chest Respiratory/Chest: Denies cough, dyspnea, dyspnea on exertion, orthopnea or sputum Gastrointestinal Gastrointestinal: Denies abdominal pain, diarrhea, nausea or vomiting Genitourinary Genitourinary ED: Denies dysuria, hematuria or urinary frequency Musculoskeletal Musculoskeletal: Denies arthralgias, back pain, myalgias or neck pain Integumentary Denies abscess, Abrasions or rash Neurologic Neurologic: Denies headache(s) or weakness Psychiatric Psychiatric: Reports depression, suicidal ideation and suicidal thoughts; Denies anxiety Endocrine Endocrinology: Denies polydipsia, polyphagia or polyuria Hematologic/Lymphatic Hematologic/Lymphatic: Denies easy bleeding, easy bruising or lymphadenopathy Allergic/Immunologic Allergic/Immunologic ED: Denies mouth swelling, tongue swelling or urticaria EXAM Physical Exam Const Vital Signs: 11/06/23 19:26 11/06/23 20:40 11/06/23 22:00 Temperature 97.6 F L 98 F Temperature Source Temporal Temporal Pulse Rate 89 73 72 Respiratory Rate 18 15 18 Blood Pressure 173/98 H 111/89 H 132/92 H Blood Pressure Mean 123 96 105 Pulse Ox 99 96 96 Oxygen Delivery Method Room Air Room Air 11/06/23 23:00 Temperature Temperature Source Pulse Rate Respiratory Rate Blood Pressure 160/98 H Blood Pressure Mean 116 Pulse Ox 95 Oxygen Delivery Method Positive well nourished and well developed General Appearance ED: well developed and NAD HEENT Reports TM's clear and moist mucous membranes normocephalic and atraumatic; Negative for trauma or tenderness Tympanic Membrane ED: Yes TM's clear Eyes PERRL and EOMs intact bilaterally General Eye ED: Negative for pale conjunctiva or scleral icterus Neck no lymphadenopathy, supple and no JVD General: Negative for tenderness Chest Wall inspection of chest normal and palpation of chest normal Chest: Negative for tenderness Resp normal respiratory effort and clear to auscultation bilaterally Effort and Inspection: Negative for respiratory distress or pain with movement Auscultation: Negative for rhonchi, wheezes or diminished lung sounds Cardio regular rate, regular rhythm, S1 normal heart sound, S2 normal heart sound and no murmurs Peripheral Pulses: pulses 2+ throughout GI normal to inspection, nondistended, normoactive bowel sounds, soft to palpation, non-tender, non-distended and no masses Back/Spine no CVA tenderness and no thoracic nor lumbar tenderness Extremity normal to inspection General Extremety ED: Negative for edema General Extremity: Negative for edema Neuro oriented x3, CN's II-XII intact bilaterally, no sensory deficits noted and gait normal Sensorium / Orientation: awake, alert, oriented to person, oriented to place and oriented to time Motor Exam: strength 5/5 throughout and strength abnormal Psych mental status grossly normal Skin no rashes or lesions noted and no wounds MDM MDM MDM Narrative Medical decision making narrative: Patient presents with depression and suicidal ideation with attempt 2 days ago to harm herself. Tonight she drank a beer and took 4 to 5 tablets of hydroxyzine 10 mg. Patient had a toxicology screen that was negative. Alcohol was 92. Acetaminophen was less than 2 and salicylate 3.3. hCG negative. CBC with differential and chemistries unremarkable. She did have slightly depressed potassium at 3.3 for which I did give her 40 mEq of potassium chloride p.o. Patient was evaluated by crisis and it is felt she would benefit from inpatient admission and stabilization. Awaiting placement by crisis. Care of patient turned over to evening physician awaiting placement of patient in transfer to psychiatric facility. Lab Data Attestation: I reviewed the patient's lab results. Labs: Laboratory Results - last 24 hr 11/06/23 11/06/23 19:52 20:08 WBC 8.8 RBC 4.33 Hgb 12.9 Hct 37.7 MCV 87.1 MCH 29.8 MCHC 34.2 RDW Std Deviation 39.9 RDW Coeff of Justin 12.4 Plt Count 343 MPV 8.5 Immature Gran % (Auto) 0.100 Neut % (Auto) 44.7 L Lymph % (Auto) 49.6 H Woodson % (Auto) 4.9 Eos % (Auto) 0.0 Baso % (Auto) 0.7 Absolute Neuts (auto) 3.9 Absolute Lymphs (auto) 4.34 Nucleated RBC % 0 Sodium 133 L Potassium 3.3 L Chloride 102 Carbon Dioxide 24.0 Anion Gap 7 BUN 6 L Creatinine 0.67 Estim Creat Clear Calc 98.89 Est GFR (MDRD) Af Amer 118 Est GFR (MDRD) Non-Af 97 BUN/Creatinine Ratio 9.0 L Glucose 97 Calcium 8.9 Serum , Qual NEGATIVE Salicylates 3.3 Urine Opiates Screen NEGATIVE Urine Methadone Screen NEGATIVE Acetaminophen < 2.0 L Ur Barbiturates Screen NEGATIVE Ur Phencyclidine Scrn NEGATIVE Ur Amphetamines Screen NEGATIVE MDMA (Ecstasy) Screen NEGATIVE U Benzodiazepines Scrn NEGATIVE Urine Cocaine Screen NEGATIVE U Cannabinoids Screen NEGATIVE Ur Drug Screen Comment Ethyl Alcohol 92.0 Discharge Plan Triage Chief Complaint: Suicidal ED Provider: Rodger Villafana Dx/Rx/DC Orders Clinical Impression: Suicidal ideation, Depression Prescriptions: No Action hydroxyzine HCl 25 mg tablet 10 mg PO QHS PRN (Reason: anxiety) sertraline [Zoloft] 100 mg tablet 100 mg PO QHS aripiprazole 5 mg tablet 2.5 mg PO QPM Primary Care Provider: Chavo George Referrals: Chavo George MD [Primary Care Provider] - Disposition Disposition: Psychiatric Hospital or Unit
[2023-11-06 20:18] LABS: Amphetamine Urine VISTA NEGATIVE (<1000 ng/mL); Barbiturate Urine VISTA NEGATIVE (< 200 ng/mL); Benzodiazepine Urine VISTA NEGATIVE (< 200 ng/mL); Cocaine Urine VISTA NEGATIVE (< 300 ng/mL); Ecstacy Urine VISTA NEGATIVE (< 500 ng/mL); Methadone Urine VISTA NEGATIVE (< 300 ng/mL); PCP Urine VISTA NEGATIVE (< 25 ng/mL); THC Urine VISTA NEGATIVE (< 50 ng/mL); Vista UDS pH Range 6
[2023-11-06 20:23] LABS: Absolute Lymphocyte Count 4.34 X10^3/uL (0.83-4.51); Absolute Neutrophil Count 3.9 X10^3/uL (2.0-7.7); Basophil# 0.06 X10^3/uL; Basophil% 0.7 % (0-1); Hematocrit 37.7 % (37-47); Hemoglobin 12.9 g/dL (12.0-15.0); Lymphocyte # 4.34 X10^3/ul (0.83-4.51); Lymphocyte % 49.6 % (19-41); Mean Corp Hgb Conc 34.2 g/dL (32-36); Mean Corpuscular Hgb 29.8 pg (27.0-32.0); Mean Corpuscular Volume 87.1 fL (81-99); Mean Platelet Vol. 8.5 fl (6.2-12.0); Monocyte# 0.43 X10^3/uL; Monocyte% 4.9 % (0-10); NRBC Flagged by Analyzer 0 % (0-5); Neutrophil # 3.91 X10^3/uL (2.7-7.7); Neutrophil % 44.7 % (47-70); Platelet Count 343 K/mm3 (150-450); RBC Distribution Width CV 12.4 % (11.6-14.6); RBC Distribution Width SD 39.9 fl (35.1-43.9); Red Blood Count 4.33 M/mm3 (4.2-5.4); White Blood Count 8.8 K/mm3 (4.4-11.0)
[2023-11-06 20:37] LABS: Anion Gap 7 (5-15); BUN 6 mg/dL (7-18); Calcium,Total 8.9 mg/dL (8.5-10.1); Chloride 102 mmol/L (98-107); Creatinine, Serum 0.67 mg/dL (0.55-1.02); EST Glomerular Filtration Rate 97 mL/min (>60); Est Glom Filt Rate - Afr Amer 118 mL/min (>60); Estimated Creatinine Clearance 98.89 ml/min; Glucose 97 mg/dL (74-106); Potassium 3.3 mmol/L (3.5-5.1); Sodium Level 133 mmol/L (136-145)
[2023-11-06 20:40] VITALS: BP 111/89; PULSE 73; RESP 15; TEMP 36.6; O2SAT 96
[2023-11-06 20:41] LABS: Internal QC Validated? YES +Cl - CLEAR BKGD; Pregnancy, Serum, hCG Quali. NEGATIVE Negative
[2023-11-06] MEDS: Potassium Chloride Oral Tablet 20 MEQ 40 MEQ PO (20:43)
[2023-11-06 20:48] LABS: Acetaminophen (Tylenol) Level < 2.0 ug/mL (10.0-30.0); Salicylate 3.3 mg/dL (2.8-20.0)
--- NOTE | 2023-11-06 21:00 | NURSING ---
CALLED CRISIS AT 2100 AND FAXED CHART OVER
[2023-11-06 22:00] VITALS: BP 132/92; PULSE 72; RESP 18; O2SAT 96
--- NOTE | 2023-11-06 22:15 | ED.RN ---
pt states took 5 vistaril 6 pm tonight with 1 beer.
[2023-11-06 23:00] VITALS: BP 160/98; O2SAT 95
[2023-11-07 07:04] VITALS: BP 129/86; PULSE 85; RESP 18; O2SAT 99
[2023-11-07 08:55] VITALS: BP 124/72; PULSE 90; RESP 16; TEMP 37.1; O2SAT 97
--- NOTE | 2023-11-07 09:23 | ED.RN ---
PT DAUGHTER PRESENT TO ED DESK WITH A BAG OF PT CLOTHING. PT BELONGINGS ADDED TO BELONGINGS BIN. PT DAUGHTER TAKE PT PURSE TO TAKE HOME.
--- NOTE | 2023-11-07 09:30 | ED.RN ---
THIS RN CALLS REPORT TO KELVIN BASEBALL PITCHER NURSE AT [facility].
== END 2023-11-07 09:40 ==
PROVIDERS: Emergency Provider Emergency Medicine; PCP Family Medicine; Visit Provider Emergency Medicine
DX: R45.851 Suicidal ideations (principal); F32.A Depression, unspecified; F41.9 Anxiety disorder, unspecified; F17.210 Nicotine dependence, cigarettes, uncomplicated; Z79.899 Other long term (current) drug therapy
CPT/HCPCS: 80048; 80307; 80320; 80329; 84703; 85025; 99285; G0480

== ENCOUNTER → 2023-11-26 | Outpatient (CLI) | payer OTHER, SELFPAY ==
[2023-11-26 15:35] LABS: ALB/GLOB Ratio 1.3 RATIO (0.9-2.4); AST(SGOT) 16 U/L (15-37); Alanine Aminotransfer ALT/SGPT 27 U/L (13-56); Albumin, Serum 4.2 g/dL (3.2-5.0); Alkaline Phosphatase 64 U/L (45-117); Anion Gap 4 (5-15); BUN 12 mg/dL (7-18); BUN/Creat Ratio 15.1 RATIO (10-20); Calcium,Total 9.7 mg/dL (8.5-10.1); Chloride 108 mmol/L (98-107); EST Glomerular Filtration Rate 80 mL/min (>60); Est Glom Filt Rate - Afr Amer 97 mL/min (>60); Globulin 3.3 g/dL (2.2-4.2); Glucose 83 mg/dL (74-106); Magnesium 2.5 mg/dL (1.6-2.6); Potassium 3.9 mmol/L (3.5-5.1); Protein, Total 7.5 g/dL (6.4-8.2); Sodium Level 137 mmol/L (136-145)
== END | disposition home or self-care (01) ==
LOC: MFPLAB 12:21
PROVIDERS: PCP Family Medicine; Visit Provider Family Medicine
DX: E87.6 Hypokalemia (principal); F10.91 Alcohol use, unspecified, in remission
CPT/HCPCS: 36415; 80053; 83735

== ENCOUNTER 2023-12-28 08:00 | Outpatient (RCR) | payer OTHER, SELFPAY ==
--- NOTE | 2023-12-28 09:05 | BH.SGPN.GN ---
Behaviors/Verbalizations/Mental Status: [] Eye contact is good. Motor activity is appropriate. Appearance is casual. Speech is Appropriate. Mood is anxious. Affect is congruent. Thoughts are linear and logical. No evidence of psychosis. Reviewed daily check in sheet and no reports of suicidal ideations or intent. Client Response/Progress/Benefit: [] Pt participated when prompted. Reports being really anxious as this is her first day in IOP. Daily symptom tracker notes 3/5 for anxiety and 2/5 for depression. Pt declined to share when asked. Group provided support and encouragement as well as feedback/advice for her first day/week in IOP level of care. Will continue in IOP to maintain safety, prevent decompensation/re-admission, and increase healthy coping skills. Narrative Note: []
--- NOTE | 2023-12-28 10:15 | BH.SGPN.GN ---
Behaviors/Verbalizations/Mental Status: []Pt alert and oriented, casually dressed and groomed. Eye contact fair to good. Motor activity appropriate. Speech within normal limits. Affect congruent, mood depressed, anxious. Thoughts linear, logical, no signs of hallucinations or delusions. Client Response/Progress/Benefit: [] Pt first day in tx, connected with topic of anxiety and participated throughout, providing input and taking notes. Participated throughout interactive discussion defining anxiety and identifying cognitive and physiological symptoms of anxiety. Group discussed how anxiety can prevent them from trying new things. Pt identified their physical signs of anxiety as: clenched jaw, muscle tension, and decreased appetite. Pt identified safety behaviors as: avoidance. Benefited from increased awareness and insight on anxiety and its impact. Pt will continue IOP tx to prevent decompensation, improve daily functioning, and increase coping skill repertoire. Narrative Note: []
--- NOTE | 2023-12-28 11:15 | BH.SGPN.GN ---
Behaviors/Verbalizations/Mental Status: []Pt alert and oriented, neatly dressed and groomed. Eye contact good. Motor activity appropriate. Speech within normal limits. Affect congruent, mood anxious and depressed. Thoughts linear, logical, no signs of hallucinations or delusions. Client Response/Progress/Benefit: [] Pt was an active participant AEB pt providing input and listening attentively to peers. Attentive during psychoeducation on mindfulness coping skills and their impact on reducing anxiety and improving overall mental health wellness. Group was able to identify self-soothing and mind-based coping skills which included: 5-senses, meditation, deep breathing, TIPP, thought challenging, and progressive muscle relaxation. Pt also participated with peers in practicing mindfulness skills in session. Pt would like to work on getting more exercise to help manage anxiety. Appeared to benefit from increasing repertoire of anxiety reduction skills. Pt will continue in IOP tx to prevent decompensation, improve daily functioning, and gain healthy coping skills. Narrative Note: []
--- NOTE | 2023-12-28 12:28 | BH.COMM_ITS ---
Communication Note Communication with Client Communication Note: Met with pt to complete initial paperwork and administer the CSSR-S screening and risk assessment. Pt is high risk as pt had a suicide attempt by overdose where she took 10-20 hydroxyzine after drinking excess alcohol. This was in October 2023, and she was hospitalized for this. Pt reports this was her only attempt and pt reports she ?just wanted to sleep.? Pt denies any SI, plan, or intent since discharging from the hospital. Pt has multiple protective factors including her family and regret about the overdose. No access to weapons or stockpiles of medications. Discussed case with Dr. Anton and pt will be admitted to [facility] tx with a diagnosis of MDD F33.2 Pt and therapist also discussed treatment goals and began the psychosocial assessment.
--- NOTE | 2023-12-29 09:00 | BH.SGPN.GN ---
Behaviors/Verbalizations/Mental Status: [] Eye contact good. Motor activity appropriate. Speech within normal limits. Affect congruent, mood anxious, content. Thoughts linear, logical, no signs of hallucinations or delusions. Reviewed client?s symptom tracker, denies SI, plan, or intent as of 12/29/2023. Client Response/Progress/Benefit: [] Client receptive of session, attentive and willing to process with group. Identified mental health ?wins? today as showing back up for her second day in IOP tx. Noted still feeling slightly anxious but less so than yesterday and is more hopeful. Discussed an additional win as taking time to pick strawberries for her son's birthday [employer]. Reports being outside was beneficial and picking the strawberries gave her something to look forward to. Pt reports current stressor is finding strategies for best managing her mental health sx. Receptive of and appearing to benefit from supportive feedback and suggestions provided by the group. Recommended continued IOP tx to continue to improve mood stability, build coping skill repertoire, as well as prevent decompensation. Narrative Note: []
--- NOTE | 2023-12-29 10:00 | BH.SGPN.GN ---
Behaviors/Verbalizations/Mental Status: [] Eye contact is good. Motor activity is appropriate. Appearance is casual. Speech is Appropriate. Mood is anxious. Affect is congruent. Thoughts are linear and logical. No evidence of psychosis. Client Response/Progress/Benefit: [] Pt participated at times during the group discussions. Attentive during psychoeducation on the 4 communication styles (Passive, Passive-Aggressive, Aggressive, and Assertive) and the obstacles to effective communication. Contributed during interactive discussion on the benefits of communicating effectively. Along with peers participated during interactive discussion in which they identified the benefits and disadvantages to the different communication styles. Benefited from increased understanding of communication styles and how these can impact effective communication. Will continue in IOP to prevent decompensation/re-admission to psychiatric unit, maintain safety, increase healthy coping, and stablize mood. Narrative Note: []
--- NOTE | 2023-12-29 11:05 | BH.SGPN.GN ---
Behaviors/Verbalizations/Mental Status: []Pt alert and oriented, casually dressed. Eye contact good. Motor activity appropriate. Speech within normal limits. Affect congruent, mood anxious. Thoughts linear, logical, no signs of hallucinations or delusions. Client Response/Progress/Benefit: [] Pt responded well to session AEB Pt listening attentively to others and providing input during group discussion on the pay offs and costs of the different communication styles. Pt able to connect how current communication style impacts mental health. Connected with peers? comments about importance of using assertive communication. Pt did well being assertive in the group activity and practiced using assertive communication in the role playing scenarios. Pt stated the scenarios were good practice because she often responds passively to others.?Pt seemed to benefit from increasing awareness of healthy strategies to improve communication. Will continue IOP tx to improve healthy coping skills, decrease avoidance of anxious situations, and prevent decompensation.
--- NOTE | 2023-12-30 09:56 | BH.NA_ITS ---
Physical Data Vital Signs Pulse Rate: 72 Blood Pressure: 143/86 Height/Weight Height: 1.68 m Weight:: 70.307 kg Weight in Pounds: 155.0 lbs Current Medication Compliance Medication Compliance Do you take your medication as prescribed?: Yes Nutritional History Appetite Nutritional Instructions: Describe your appetite:: Good Additional nutritional information:: Client states she has gained about 10lbs in the last couple of years. Client states her appetite is unchanged. Functional Assessment Sleep Pattern Describe any problems with sleeping: Client states she is sleeping about 7-8 hours per night. Sensory/Communication Assess Communication Problems Do you have difficulty understanding what people are saying?: No Medical Problems/History Pain Assessment Do you have acute or chronic pain?: No Family History Family History (Updated 04/30/23 @ 13:33 by May Calvillo) Mother CVA (cerebral vascular accident) Father Cancer Surgical History Surgical History Have you had any surgeries? If so, list type and date:: Yes (tubal) Substance Abuse Substance Abuse Please describe substance abuse in the last 30 days:: Client states she previously had been having 3-4 alcoholic drinks per day, but states she has been sober for 7 weeks (since her hospitalization in October 2023). Client states she has been a cigarette smoker off and on for 30 years, stating she currently has been smoking consistently for the last 10 years. Client denies substance use. Client states she has 4 cups of coffee per day. Mental Status Summary Mental Status Significant Findings/Observations on Appearance and Mood:: Client is alert and oriented x 4. Client is casually groomed with good hygiene. Client is cooperative with assessment. Client makes good eye contact. Client's voice has normal rate and volume. Client has a somewhat restricted affect. Client makes logical associations and has normal processing. Client denies delusions/hallucinations. Client denies current SI. Suicide Assessment Suicidal Ideation Are you currently or have you been suicidal in the past?: Yes Suicidal Intentional Rating Scale (SIRS): Suicidal thoughts (past) Physician Notification Past Psychiatric History MH Treatment Hx Past Psychiatric Medications:: Prozac, Wellbutrin (when ) Age of first mental health symptoms: Client states she has been on medication for depression since around age 27. Describe (age, circumstance, etc) any past hospitalizations: 11/06/23 at [facility] after a suicide attempt after drinking alcohol and taking hydroxyzine (also in record, it is reported that she admits to drinking alcohol and taking hydroxyzine on 11/04/23). Current providers for mental health treatment (counselor, psychiatrist, family independence case manager, etc.): Nigel at [facility] for counseling, but states she is looking for a new therapist. Fall Risk Assessment Age Age: Less than 60 Mental Status Mental Status: Willing & able to ask for assistance when needed Physical Status Physical Status: No problems Impairments Impairments: None Elimination Elimination: Continent AND independent Gait or Balance Gait or Balance: Walks independently Hx of Falls History of falls in the past 6 months: No known history Medications/Substances Psychotropics:: Antidepressants, Antipsychotics and Antihistamines (e.g. Benadryl) Medications/substances used within the past 24 hours or ordered to administer: 3 or more of the medications/substances listed above Total Score Total Points:: 2 RN Summary of Impressions Impressions Recommendations Impressions: Psychiatric Issues: 1. Major depressive disorder, recurrent, severe without psychosis 2. Social anxiety disorder 3. PTSD 4. Alcohol use disorder (sober x 7 weeks) 5. Primary support issues Level of Care How do the client's current symptoms and functional deficits support need for this level of care?: Client was referred to IOP after a hospitalization at [facility] after an overdose on hydroxyzine on 11/06/23. Client states she has been feeling depressed for several months and states she thinks it is due to loneliness. Client states her is not emotional supportive, and she states her daughter recently moved out. Client reports an improvement in her mood somewhat since being hospitalized and denies SI at this time. Client states she has been sober for 7 weeks since she was hospitalized. IOP will promote gains and prevent further decompensation while providing social support and skills training.
[2023-12-30 10:02] VITALS: BP 143/86; PULSE 72
--- NOTE | 2023-12-30 10:15 | BH.SGPN.GN ---
Behaviors/Verbalizations/Mental Status: [] Eye contact is good. Motor activity is appropriate. Appearance is casual. Speech is Appropriate. Mood is anxious and depressed. Affect is congruent. Thoughts are linear and logical. No evidence of psychosis. Client Response/Progress/Benefit: [] Pt receptive of session, actively engaged throughout AEB taking notes, providing input, and contributing in small group discussion. Appeared to connect with group topic of automatic thoughts and cognitive distortions and the impact of thought patterns on mental health, coping behaviors, and relationships. This particular group is very heavy on psychoeducation and pt appeared to connect with distortions and how they can impact functioning. Identified struggling with overgeneralization and disqualifying the positives distortions. Pt appeared to benefit from gaining insight on distorted thinking patterns and how this impacts overall mental health. Will continue IOP to stabilize mood, improve understanding of mental health sx and skill application, and prevent decompensation. Narrative Note: []
--- NOTE | 2023-12-30 11:10 | BH.PSA ---
Source of Information Presenting Problems/Circumstances Problems, Referral Source, Mental Status, Client: Pt was a self-referral after being recently admitted to [facility] psychiatric unit due to a suicide attempt on 11/06/23. On 11/04/23 and on 11/06/23 she attempted suicide via OD on Hydroxyzine pills. According to pt she was intoxicated prior to both attempts. She denies they were suicide attempts currently stating that she simply wanted to fall asleep. Psychiatric Presentation Psych Issues & Need for Admission Psychiatric Issues:: Major Depressive D/O, Alcohol Use Disorder, recent psychiatric admission, 2 recent suicide attempts, anxiety. Past Psychiatric History MH Treatment Hx Treatment History: Pt reports consistent counseling for the past 5 years. First hospitalization:: [facility] 11/06/23. Most recent hospitalization:: refer above Medication Trials:: No ECT Therapy:: No Age of first mental health symptoms: Pt reports depressive symptoms which began around age 14. She began to take psychiatric medications at age 24. Describe (age, circumstance, etc) any past hospitalizations: [facility]- suicide attempt via OD (11/06/23). This was her first admit. Loneliness. Self-medicating with alcohol for depression Current providers for mental health treatment (counselor, psychiatrist, manager rn case, etc.): Currently she is linked with a therapist at [facility]. According to pt her therapist is an sports marketing internship and will be leaving the agency shortly. Development & Family of Origin Childhood Significant Childhood Events: Pt's mother was diagnosed with Schizophrenia and was often admitted to psychiatric units. Her parents when she was 6 years old and she lived with her grandparents. Family Who currently lives in your home?: Currently live with her of 32 years. 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[employer]) Mental Status Memory Recent Memory: Fair Remote Memory: Fair Concentration Concentration: Fair Eye Contact Eye Contact: Good Speech Speech: Articulate Thought Process Thought Process: Ruminations Insight: Fair Judgment: Fair Behavior: Anxious Orientation Orientation: Time, Person, Place and Situation Appearance Appearance: Appropriate Mood Mood: Anxious, Depressed and Sad Affect Affect: Flattened Suicide Assessment Suicidal Ideation Have you ever felt like hurting yourself?: Yes Please explain:: According to ER notes pt presented to the ER intoxicated after intentional overdose on medications. She denies it was suicide attempt claiming she wanted to disappear or sleep. Admits to significant depression which had been impacting her functioning. Were you using ETOH/drugs at the time?: Yes Suicidal Intentional Rating Scale (SIRS): Suicidal thoughts (past) Physician Notification Violent Behavior/Abuse History Homicidal Ideation Do you have any homicidal thoughts? If so, explain:: No Is there a known potential victim? If yes, who:: No Abuse Have you ever been abused?: No Life Events Are there any other significant life events?: (Father dies 2 years ago she reports she greatly misses him. ) and Hardships (estranged from family members (Sister, brother) for unknown reasons) Describe significant life events: of father 2 years ago Her adult daughter recently moved out of the house Safety Do you ever feel threatened in your home? If yes, describe:: No Adult Social History Age 18 to Present Describe your current support system:: Adult children (22,28) Substance Use Substance Substance Use Type: Alcohol and Tobacco IV Substance Use Do you have a history of IV use?: denies Additional Information Additional Comments:: Nicotine- cigarettes pack a day for 40 years. Alcohol- first use at age 13. Hx of addiction to alcohol. She was sober for 6 years and relapsed 2 years ago. She reports that her use started socially however soon became daily. Since August 2023 she had been drinking 3-4 hard seltzers daily, Sober since 11/07/23. Leisure/Social Activities Interests What do you enjoy or might be interested in learning about?: Pt reports she want to lean effective ways to manage depression and anxiety. 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 If yes, describe:: No Court Orders Have you had any past court orders for psychiatric treatment?: No Do you have a present court order for psychiatric treatment?: No Problem Checklist Current Problem Areas Problem List: Depressed mood/sad, Anxiety, Substance use (alcohol use disorder) and Additional psychosocial stressors (daughter moved out recently; estranged from family members) Discharge Planning Needs Anticipated Follow-Up Mental Health Center (Name/Phone Number):: [facility] Primary Care Physician: Chavo George Family and Caregiver Contacts:: , [id number] Release of Information Signed:: Yes Cash Management Specialist's Assessment Client's Needs What are the client's feelings about the program?: Pt reports being really anxious about IOP and group counseling, however admits that I need to do something What are the client's goals?: Identified her goals for IOP which included learning and apply skills on a daily basis. She is hoping to increase her confidence, decrease social anxiety, and be more assertive. She views herself as passive and constantly people-pleasing. She also reports significant negative thoughts which leads to depression, feelings of worthlessness, feeling like a failure, and impacts her functioning. What are the client's strengths?: Resiliency, appears motivated Diagnoses Diagnoses Diagnosis #1:: Major Depressive Disorder, recurrent, severe, w/o psychiatric features Diagnosis #2:: Social Anxiety Disorder Diagnosis #3:: PTSD Diagnosis #4:: Alcohol Use Disorder Interpretive Summary Interpretive Summary Interpretive Summary: Pt is a 53 year old female with dx of MDD, recurrent, severe w/o psychotic features, Social Anxiety Disorder, and PTSD. Presented to [facility] after recent psychiatric admission to [facility] on 11/06/23 after intentional overdose. Pt denies this was a suicide attempt stating that she took the pills to fall asleep. Pt was intoxicated at the time. Reports worsening depression for the past several months which led to avoidance, isolation, and self-medication with alcohol. Primary triggers include her daughter moving out, being estranged from siblings, and grief related to her parents. I was just so lonely. Believes that her psychiatric admission was helpful. She discharge she is 6 weeks sober and reports increased support and encouragement from family. Continues to endorse poor appetite, low energy, low motivation, hopelessness, worthlessness, isolation, and anhedonia. Denies active suicidal ideations, plan, or intent. Hx of two intentional overdoses in 10/2023. Denies HI or psychosis. Long-standing struggles with alcohol use. She had been sober for 8 years until she relapsed in 2021. Family hx of Schizophrenia (mother). Treatment Plan Recommendations Recommendations Guidelines Recommendations:: Due to recent psychiatric hospitalization, two recent intentional overdose attempts, and mental health impacting functioning recommended [facility] level of care.
--- NOTE | 2023-12-30 11:10 | BH.MDN ---
Multi-Disciplinary Note Note 45-min Individual: Time Started:: 11:10 Date: 12/30/23 Purpose of session/treatment goals addressed:: Utilized session to review history, develop treatment plan, and review progress in IOP Eye Contact:: Good Motor Activity:: Appropriate Appearance:: Casual Speech:: Appropriate Mood:: Anxious and Depressed Affect:: Congruent Thoughts:: Linear, Logical and No evidence of hallucinations/delusions noted Staff Interventions:: rapport building, treatment planning and goal setting Client Response:: Pt reports that her first week in IOP went well. She feels that the she has learned new skills and perspectives. Identified her goals for IOP which included learning and apply skills on a daily basis. She is hoping to increase her confidence, decrease social anxiety, and be more assertive. She views herself as passive and constantly people-pleasing. She also reports significant negative thoughts which leads to depression, feelings of worthlessness, feeling like a failure, and impacts her functioning. It has been 6 weeks she she last used alcohol and since her discharge from the psychiatric unit. Risks/Concerns:: Denies suicidal ideations, plan, or intent. Pt was admitted for a suicide attempt in 10/2023. According to pt she was intoxicated and took the pills to fall asleep, denies this was an attempt. Progress Toward Goals/Plan:: Limited progress as this is pt's first week in [facility]. According to patient she is benefiting from psychoeducation and support from the IOP. Six weeks sober and was discussed her relapse prevention strategies. Previously linked with AA however due to social anxiety as well as other concerns has not re-established, however she believes the program was helpful. We developed a plan for her to reach out to previous sponsor and discuss AA groups in the area. Linking with sponsor may also help with social anxiety. She is also concerned about relapsing at an upcoming wedding medical reception. We developed a strategy for this weekend as well. She is to finish a list of disadvantages to drinking which we started together in session to combat urges and relapse thinking. She is to review this list daily and when an urge hits. Will continue in IOP to maintain safety, prevent decompensation and re-admission to psych unit, and increase healthy coping skills. Time Stopped:: 12:00
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
--- NOTE | 2023-12-30 12:44 | BH.MTP_ITS ---
Master Treatment Plan Patient Information Program Physician:: Chika Lowe Primary Therapist:: Marty Meza Psychiatric Diagnoses Psychiatric Diagnoses:: 1. Major depressive disorder, recurrent, severe without psychosis 2. Social anxiety disorder 3. PTSD 4. Alcohol use disorder (sober x 7 weeks) Diagnosis Code(s):: F33.2 Estimated LOS Estimated LOS (in weeks):: 4 Problem/Goal #1 Problem/Goal #1 Stated Goal:: Client will reduce depressive symptoms, worthlessness, lack of concentration, suicidal ideations, and negative thoughts AEB by self-report and reduction of score on the DSM-5 scores on the depression and SI domains. Description of Barriers: stigma, limited support, hx of alcohol abuse. Functional Impact: recent psychiatric admission for mental health, isolation, self-medicating with alcohol Goal Relevant Strengths/Supports: Motivated, resilence Objectives Objective #1: Stated Objective: Client will work with therapist to develop a ?crisis management plan? which includes emergency telephone numbers, internal/external coping strategies for SI/overwhelming emotions, lists of supports, warning signs, positive aspects of life, and motivations. Interventions: Through individual and group counseling pt will learn and practice various internal and external coping skills for emotional dysregula tion. Therapist will provide patient with safety plan worksheet (if he desires) and work with pt. to develop individualized plan which includes internal coping skills, external coping skills, support, and crisis numbers. Discharge Criteria: Complete crisis management plan Target Date: 01/22/24 Review Date: 01/20/24 Objective #2: Stated Objective: Client will identify and replace 2-3 negative cognitive distortions that reinforce depressive symptoms, self-hate,and negative self- talk. Interventions: Through individual and group counseling will provide education on CBT concepts and cognitive distortions as well as provided education on the connection between thoughts, emotions, and feelings. Therapist will assist client in identifying, challenging, and replacing dysfunctional thoughts with positive, more realistic thoughts. Discharge Criteria: Able to identify 3 cognitive distortions and how they impact her thoughts, emotions, and behaviors. Target Date: 01/22/24 Review Date: 01/20/24 Problem/Goal #2 Problem/Goal #2 Stated Goal:: Stabilize anxiety/ anger levels while increasing ability to function on a daily basis AEB self-report and decrease in outcomes score on DSM- 5 anxiety domain. Description of Barriers: stigma, limited support, hx of alcohol abuse. Functional Impact: recent psychiatric admission, isolation, avoidance, self- medicating with alcohol Goal Relevant Strengths/Supports: motivated, resilience. Objectives Objective #1: Stated Objective: Client will increase social interactions and learn 2-3 strategies to improve interpersonal effectiveness skills. Interventions: Through individual and group counseling will introduce cognitive restructuring techniques and help client gain awareness of negative thoughts that reinforce avoidance behaviors, people-pleasing, and fear of judgement. Therapist will help client incorporate mindfulness, opposite action, assertiveness skills, and self-talk strategies to manage anxiety. Discharge Criteria: Client will re-engage with 2 supports, implement 2 boundaries to improve mental health, and identify and challenge negative thoughts associated with judgement and need to please others. Target Date: 01/22/24 Review Date: 01/20/24
--- NOTE | 2023-12-30 12:44 | BH.DR.ITP ---
Initial Treatment Plan Patient Information Visit Information: ADMISSION DATE: EXPECTED LOS: 4-6 weeks Problems/Symptoms Problem #1:: Depression Symptom:: Sadness, hopelessness, worthlessness, anhedonia, low energy, decreased concentration, guilt Problem #2:: Anxiety Symptom:: Worry, rumination, social anxiety, avoidance, nightmares, flashbacks
--- NOTE | 2024-01-04 09:00 | BH.SGPN.GN ---
Behaviors/Verbalizations/Mental Status: [] Client alert and oriented, casual appearance. Eye contact good. Motor activity appropriate. Speech within normal limits. Affect congruent, mood positive and slightly anxious. Thoughts linear, logical, no signs of hallucinations or delusions. Reviewed client?s symptom tracker, no risk for suicidal ideation, plan, or intent. Client Response/Progress/Benefit: [] Client responded well to session AEB listening to others and sharing thoughts/feelings. Client reports a 1/5 for depression and a 1/5 for anxiety. Client reported mental health positive as starting to repair relationship with her sister. Client stated she was able to see her sister in person yesterday, which went really well. Client reported additional win is starting to feel more relaxed in the program which is helping her open up more in group. Stated her stressor is worrying about her daughter starting a new job soon. Appeared to benefit from support from peers. Will continue IOP tx to increase healthy coping skills, improve view of self, and prevent decompensation.
--- NOTE | 2024-01-04 10:10 | BH.SGPN.GN ---
Behaviors/Verbalizations/Mental Status: [] Eye contact is good. Motor activity is appropriate. Appearance is casual. Speech is Appropriate. Mood is depressed and anxious. Affect is congruent. Thoughts are linear and logical. No evidence of psychosis. Client Response/Progress/Benefit: [] Pt receptive to session AEB contributing to group discussion, as well as listening attentively to others, and taking notes. Worked with group to brainstorm the positive and negative aspects of stress on physical and mental health as well as the impact of distress on performance, relationships, and mental health. Pt shared their top stressors to be: work, mental health, and family issues. Shared when feeling overwhelmed with stress they tend to shut down, freeze, and numb with substances. Benefited from increased awareness of positive and negative stress as well as how stress impacts mental health and relationships. Will continue in IOP to promote utilization of distress tolerance skills, improve positive view of self, and prevent decompensation. Narrative Note: []
--- NOTE | 2024-01-04 11:10 | BH.SGPN.GN ---
Behaviors/Verbalizations/Mental Status: []Pt alert and oriented, casually dressed and groomed. Eye contact good. Motor activity appropriate. Speech within normal limits. Affect congruent, mood euthymic. Thoughts linear, logical, no signs of hallucinations or delusions. Client Response/Progress/Benefit: [] Pt was an active participant in group discussions and experiential activity. Attentive during psychoeducation on the 4 A's (Avoid, adapt, alter, accept) of coping with stress. Pt wants to work on accepting stressors out of her control using the serenity prayer. Was able to identify the connection between the experiential activity and utilization of stress management skills. Benefited from increased awareness of stress management strategies. Pt will continue IOP tx to prevent decompensation, increase healthy coping skills, and improve daily functioning. Narrative Note: []
--- NOTE | 2024-01-06 09:03 | BH.SGPN.GN ---
Behaviors/Verbalizations/Mental Status: [] Eye contact good. Motor activity appropriate. Speech within normal limits. Affect congruent, mood scattered but content. Thoughts linear, logical, no signs of hallucinations or delusions. Reviewed client?s symptom tracker, denies SI, plan, or intent as of 01/06/2024. Client Response/Progress/Benefit: [] Client receptive of session, attentive and willing to process with group. Identified mental health ?wins? today as making progress in advocating for her own needs by setting a boundary with her and telling him she could not help with caring for her [id number]'s lawn. Additionally, reports encouraging her to spend time with his father rather than solely providing tangible support. Expressed this was out of her comfort zone but went well and she was proud of herself. Went on to identify a win as not turning to alcohol to decompress from the day as she would have in the past. Noted reminding herself of the consequences and finding alternative things to do to distract her instead. Current stressor identified as feeling scattered today but did well to identify skills she can use to help feel more present and focused. Receptive of and appearing to benefit from supportive feedback and suggestions provided by the group. Recommended continued IOP tx to continue to improve mood stability, promote consistency of skill application and boundary setting, as well as prevent decompensation. Narrative Note: []
--- NOTE | 2024-01-06 10:15 | BH.SGPN.GN ---
Behaviors/Verbalizations/Mental Status: []Patient was alert and oriented, casually dressed and groomed. Eye contact was good, motor activity normal, speech within normal limits. Affect constricted, mood calm. Thoughts linear, logical, no signs of hallucinations or delusion Client Response/Progress/Benefit: [] Pt participated in the group discussions AEB providing input occasionally and taking notes. Attentive during psychoeducation Goal Setting. Participated during the discussion on common barriers which the group identified as: lack of motivation, not knowing where to start, not feeling good enough, and lack of support. Group also identified benefits sense of purpose, improved self-confidence, more motivation for other goals, and improved mental health. Benefited from increased awareness of mental health benefits of goals as well as psychoeducation on SMART goal criteria. Will continue in IOP to improve mood stability, increase emotional regulation skills, and reduce negative thinking patterns. Narrative Note: []
--- NOTE | 2024-01-06 11:00 | BH.MDN_ITS ---
Multi-Disciplinary Note Note 60-min Individual: Time Started:: 11:10 Date: 01/06/24 Purpose of session/treatment goals addressed:: Reviewed progress and current symptoms. Addressed treatment plan goals 1 and 2. Eye Contact:: Good Motor Activity:: Appropriate Appearance:: Casual Speech:: Appropriate Mood:: Anxious Affect:: Full Thoughts:: Linear, Logical and No evidence of hallucinations/delusions noted Staff Interventions:: CBT techniques (education on CBT and cognitive distortions) and treatment planning Client Response:: Pt reviewed an event this past week which led to negative thoughts, urges to use/isolate (unhealthy coping), guilt, depression, and uncertainty. Despite urges to use, avoid, and isolate she choose to seek out support (healthy coping). Reports in the past she would not have utilized support as she would not have wanted to burden them which would have led to isolation, alcohol use, and worsening negative thoughts. That's what led to my hospitalization. We processed the event and her negative automatic thoughts and cognitive distortions. Worked together to challenge some of these distortions. Risks/Concerns:: no risks or concerns noted. Denied SI on daily symptom tracker. Progress Toward Goals/Plan:: Progress noted. She attended a wedding office assistant receptionist this past week and was able to utilize relapse prevention skills. Currently 2 months sober. Practicing assertive communication as well. Consistent and engaged in IOP reporting that the support and education have been helpful. Pt continues to report negative automatic thoughts and urges to utilize unhealthy coping skills (Avoidance, alcohol, etc.). Depression and anxiety continue to impact functioning and interactions however she is slowly beginning to introduce reframing skills, assertive communication, boundary setting, and practicing healthy coping skills. Given assignment to begin thought log in which she identify negative thoughts and cognitive distortions. Time Stopped:: 12:05
--- NOTE | 2024-01-07 09:05 | BH.SGPN.GN ---
Behaviors/Verbalizations/Mental Status: [] Pt alert and oriented, neatly dressed and groomed. Eye contact good. Motor activity appropriate. Speech within normal limits. Affect congruent, mood euthymic. Thoughts linear, logical, no signs of hallucinations or delusions. Reviewed pt?s symptom tracker, no risk for suicidal ideation, plan, or intent 01/07/24 Client Response/Progress/Benefit: []Pt responded well to session, attentive and engaged. Pt reports feeling calm this morning as pt is experiencing less anxiety recently. Pt also identified her mental health wins as being two months sober from alcohol, feeling less anxious overall, and sticking with her list of reasons not to drink. Pt's stressor today is this coming weekend is father's day and this is always a grief trigger for pt since losing her father. Pt appeared to benefit from reflecting on her application of skills and receiving feedback. Pt will continue IOP tx to promote mood stability, increase self-care practices, and further decrease anxiety. Narrative Note: []
--- NOTE | 2024-01-07 10:10 | BH.SGPN.GN ---
Behaviors/Verbalizations/Mental Status: [] Eye contact is good. Alert and oriented. Motor activity is appropriate. Appearance is casual. grooming is appropriate. Speech is Appropriate. Mood is anxious. Affect is congruent. Thoughts are linear and logical. No evidence of psychosis or hallucinations. Client Response/Progress/Benefit: [] Client was an active participate AEB listening attentively to others, participating in group discussions, and taking notes throughout. Participated as the group identified the impact of emotions on communication such as change in tone, body language, shutting down, misperceiving the communication, and willingness to communicate. Participated with peers to identified reasons why one stuffs emotions which include; to avoid conflict, not draw attention to struggles, being emotional can be perceived as a weakness, and it can make when feel vulnerable.Participated during group activity. Client benefited from session by gaining an increased understanding on the importance of managing emotions to improve daily functioning. Client will continue IOP to maintain safety, prevent decompensation/re-admission to psych unit, increase healthy coping, and to improve functioning. Narrative Note: []
--- NOTE | 2024-01-07 11:15 | BH.SGPN.GN ---
Behaviors/Verbalizations/Mental Status: []Pt alert and oriented, casually dressed and well groomed. Eye contact good. Motor activity appropriate. Speech within normal limits. Affect congruent, mood euthymic, slightly anxious. Thoughts linear, logical, no signs of hallucinations or delusions. Client Response/Progress/Benefit: [] Pt engaged in session AEB Pt listening attentively to peers and providing input. Attentive during psychoeducation on 4 zones of regulation. Pt able to identify feelings and behaviors for each zone. Pt identified coping skills one can use to support self in each zone. Pt wants to start exercising to help calm down anxiety and remind herself it's okay to rest to help manage when she is stuck in the yellow zone. Benefited from increased education on zones of regulation or stages of alertness for emotions and healthy coping skills to use for each zone. Will continue IOP tx to continue practicing healthy coping skills, challenge negative thoughts, and prevent decompensation.
--- NOTE | 2024-01-11 09:05 | BH.SGPN.GN ---
Behaviors/Verbalizations/Mental Status: [] Eye contact is good. Motor activity is appropriate. Appearance is casual. Speech is Appropriate. Mood is anxious. Affect is congruent. Thoughts are linear and logical. No evidence of psychosis. Reviewed daily check in sheet and no reports of suicidal ideations or intent. Client Response/Progress/Benefit: [] Pt participated at times during the group discussion. Attentive. Able to identify mental health wins and healthy habits. Emotion for today is ?anxious and energized?. She talked at length regarding psychosocial stressors which had been impacting her self-esteem and perception of herself for several years. Elnora distant from certain support which led to isolation, depression, and self-medication with alcohol. She has begun to mend certain relationships and is beginning to see the benefits. Progress noted. Benefited from group support, encouragement, and feedback. Will continue in IOP to maintain safety, prevent decompensation/re-admission to psych unit, and to improve functioning. Narrative Note: []
--- NOTE | 2024-01-11 10:15 | BH.SGPN.GN ---
Behaviors/Verbalizations/Mental Status: []Pt alert and oriented, neatly dressed and groomed. Eye contact good. Motor activity appropriate. Speech within normal limits. Affect congruent, mood euthymic. Thoughts linear, logical, no signs of hallucinations or delusions. Client Response/Progress/Benefit: [] Pt took notes and contributed occasionally. Attentive during psychoeducation on growth mindset. Participated during the activity. Interactive group discussion on growth mindset in which group verbalized their current fixed mindsets and how they affect their mental health. Pt shared common fixed mindset thoughts they have which included I?m too shy, I?m never going to be socially comfortable around new people, nobody likes me, and I?m going to say something stupid.? These thoughts lead to avoidance and shutting down. Pt benefited from increased awareness of growth mindset and fixed thoughts and how fixed thoughts impact their mental health. Will continue IOP tx to prevent decompensation, improve daily functioning, and increase application of healthy coping skills. Narrative Note: []
--- NOTE | 2024-01-11 11:15 | BH.SGPN.GN ---
Behaviors/Verbalizations/Mental Status: []Pt alert and oriented, casually dressed and groomed. Eye contact good. Motor activity appropriate. Speech within normal limits. Affect congruent, mood content, anxious. Thoughts linear, logical, no signs of hallucinations or delusions. Client Response/Progress/Benefit: [] Pt was an active participant during activity and discussion. Pt did well to remain attentive and participate as group worked on identifying characteristics and benefits of adopting a growth mindset. Worked with fellow participants in reframing the example fixed thoughts into growth mindset thoughts. Pt worked on changing own fixed thought and reframed the thought to ?I can learn to be patient and cope with new and different situations?. Pt appeared to benefit from challenging own thoughts and engaging in the activity. Pt will continue IOP tx to prevent decompensation, improve consistency of coping application, and gain healthy coping skills. ?? Narrative Note: []
--- NOTE | 2024-01-13 09:01 | BH.SGPN.GN ---
Behaviors/Verbalizations/Mental Status: []Pt alert and oriented, casually dressed and groomed. Eye contact good. Motor activity appropriate. Speech within normal limits. Affect congruent. mood anxious. Thoughts linear, logical, no signs of hallucinations or delusions. Reviewed pt?s symptom tracker, no risk for suicidal ideation, plan, or intent. Client Response/Progress/Benefit: []Pt responded well to session, attentive and engaged. Pt reported mental health positive she went to [place] for the first time in a really long time. Pt stated she is happy she went because it was good to be around support. Pt reported additional mental health positive as completing a bedroom refresh. Pt stated she painted her bedroom brighter colors and reorganized her room. Pt stated was feeling stressed this morning because wasn't feeling well, but is feeling better now. Pt will continue IOP tx to promote use of healthy coping skills, challenge distorted thoughts, and prevent decompensation.
--- NOTE | 2024-01-13 10:10 | BH.MDN ---
Multi-Disciplinary Note Note 60-min Individual: Time Started:: 10:10 Date: 01/13/24 Purpose of session/treatment goals addressed:: Utilized session to review current symptoms and progress in IOP. Addressed treatment plan goals 1 and 2. Eye Contact:: Good Motor Activity:: Appropriate Appearance:: Casual Speech:: Appropriate Mood:: Anxious Affect:: Congruent Thoughts:: Linear, Logical and No evidence of hallucinations/delusions noted Staff Interventions:: thought challenging, psychoeducation on: (cognitive distortions) and CBT techniques Client Response:: Pt completed assignment from last session which in she identified negative automatic thoughts, cognitive distortions associated with those thoughts, and then challenged the distortions/thoughts. Therapist and pt worked through several examples. She reports that increased awareness of her thoughts and cognitive distortions has been helpful in emotional regulation and healthy actions. Risks/Concerns:: no risks or concerns noted. Denied suicidal ideation on daily symptom tracker. Progress Toward Goals/Plan:: Consistent and engaged in IOP. Medication compliant. No side effects or concerns with medications and believes they are effective. According to patient she is getting benefits from psychoeducation groups and support. Reports boundary setting, assertive communication, and reframing. Responded well to CBT education and thought log. Utilizing skills. We discussed aftercare options and pt plans to reach out to [facility] to get linked with therapist and psychiatrist. Time Stopped:: 11:00
--- NOTE | 2024-01-13 11:15 | BH.SGPN.GN ---
Behaviors/Verbalizations/Mental Status: []Eye contact is good. Motor activity is appropriate. Appearance is neat. Speech is Appropriate. Mood is euthymic. Affect is constricted. Thoughts are linear and logical. No evidence of psychosis. Client Response/Progress/Benefit: []Pt responded well to session, attentive and engaged in group discussions and activity. Group discussed values and the benefits that knowing one's values can have on one's mental health. Pt explored own values and identified personal top values. Pt stated a personally important value is family. Pt set a goal to call her kids and invite them over for dinner by this Thursday. Pt also reported benefitting from the activity and the group encouragement today. Will continue in IOP to prevent decompensation, improve daily functioning, and increase application of healthy coping skills. Narrative Note: []
--- NOTE | 2024-01-15 09:00 | BH.SGPN.GN ---
Behaviors/Verbalizations/Mental Status: [] Pt alert and oriented, neatly dressed and groomed. Eye contact good. Motor activity appropriate. Speech within normal limits. Affect congruent, mood euthymic. Thoughts linear, logical, no signs of hallucinations or delusions. Reviewed pt?s symptom tracker, no risk for suicidal ideation, plan, or intent 01/15/24 Client Response/Progress/Benefit: []Pt responded well to session, attentive and engaged. Pt reports feeling calm and anxious this morning. Pt reports wins today as getting together with her sister today which is both exciting and contributing to her anxiety. Pt also made an appointment for counseling which pt feels hopeful about. Pt is doing well in IOP and working towards tx goals. Pt's stressor today is her nieces graduation libertarian this weekend and knowing there will be a lot of people to talk to. The group offered pt advice which pt appeared to benefit from. Pt appeared to benefit from reflecting on application of healthy coping skills and connecting with peers. Pt will continue IOP tx to promote gains, increase distress tolerance, and improve self-compassion. Narrative Note: []
--- NOTE | 2024-01-15 10:05 | BH.SGPN.GN ---
Behaviors/Verbalizations/Mental Status: [] Client alert and oriented, casually dressed and groomed. Eye contact good. Motor activity appropriate. Speech within normal limits. Affect congruent, mood euthymic. Thoughts linear, logical, no signs of hallucinations or delusions. Client Response/Progress/Benefit: [] Client responded well to session, contributing to discussion and engaged during the activity. Attentive during discussion on the quote. Group identified the benefits of change which included: confidence better relationships, and improved mental health. Worked with the group to identify barriers to change, which included: anxiety and fear, confusion, external variables, and negative thinking. Client also reported reflected on past negative experiences can keep people from making changes. Client participated along with group in activity where they identified and discussed the emotions related to change. Benefited from increased awareness and understanding of emotions, benefits, and barriers related to change. Will continue IOP tx to increase self worth and overall functioning. Narrative Note: []
--- NOTE | 2024-01-15 11:05 | BH.SGPN.GN ---
Behaviors/Verbalizations/Mental Status: [] Client alert and oriented, casually dressed and groomed. Eye contact good. Motor activity appropriate. Speech within normal limits. Affect congruent, mood euthymic. Thoughts linear, logical, no signs of hallucinations or delusions. Client Response/Progress/Benefit: [] Client responded well to session, attentive throughout. Did well to process activity and work with group to relate the strategies used to overcome barriers in the activity to managing change in own life. Client identified a change they would like to make is stopping smoking. Client identified currently being in preparation stage for this particular change. Client said competing step down goals and following thought with plan she made can help get her to next stage. Appeared to benefit from identifying a change they want and how to progress. Client will continue IOP tx to increase self work and prevent decompensation. Narrative Note: []
--- NOTE | 2024-01-18 09:05 | BH.SGPN.GN ---
Behaviors/Verbalizations/Mental Status: [] Eye contact is good. Motor activity is appropriate. Appearance is casual. Speech is Appropriate. Mood is euthymic. Affect is full. Thoughts are linear and logical. No evidence of psychosis. Reviewed daily check in sheet and no reports of suicidal ideations or intent. Client Response/Progress/Benefit: [] Pt participated at times during the group discussions. Attentive. Able to identify mental health wins and healthy habits. She attended a family event that she has been anxious about for the past couple weeks. States it went well. She continues to make progress reconnecting with and improving her relationship with family members. Overall reports decreased anxiety and depression along with improved use of healthy coping skills. Progress noted. Benefited from group support, encouragement, and feedback. Will continue in IOP to maintain safety, prevent decompensation/re-admission to psych, and to increase healthy coping. Narrative Note: []
--- NOTE | 2024-01-18 10:10 | BH.SGPN.GN ---
Behaviors/Verbalizations/Mental Status: []Eye contact is good. Motor activity is appropriate. Appearance is casual. Speech is Appropriate. Mood is euthymic, slightly anxious. Affect is congruent. Thoughts are linear and logical. No evidence of psychosis. Client Response/Progress/Benefit: [] Pt was an active participant in activity and taking notes during group discussion. Attentive during psychoeducation and interactive discussion on coping skills included why people use unhealthy skills. Group came up with list of unhealthy coping skills and pt identified personal ones as avoidance, and isolation. Group discussed the effects of how unhealthy coping skills can impact mental health in a negative way. Participated during experiential activity and was able to relate the activity to group topic regarding the benefits of developing strong internal and external support system. Benefited from increased understanding of unhealthy coping skills and the need for developing healthy internal and external coping skills. Pt will continue IOP tx to promote gains, continue building confidence, and prevent decompensation.
--- NOTE | 2024-01-18 11:15 | BH.SGPN.GN ---
Behaviors/Verbalizations/Mental Status: []Pt alert and oriented, casually dressed and groomed. Eye contact good. Motor activity appropriate. Speech within normal limits. Affect congruent, mood content. Thoughts linear, logical, no signs of hallucinations or delusions. Client Response/Progress/Benefit: [] Pt responded well to session, taking notes and contributing when prompted. Group discussed the different categories of coping skills which included distraction, emotional release, grounding, self-love, and thought challenging. Pt participated in creating a coping skills ?menu? from the five categories of coping skills. Pt's coping skill menu included: exercise, aromatherapy, 5-senses, boundary setting, and creating pro/con lists. Appeared to benefit from increasing repertoire of healthy coping skills. Will continue IOP to improve stress management, challenge distortions, and prevent decompensation. Narrative Note: []
--- NOTE | 2024-01-20 09:01 | BH.SGPN.GN ---
Behaviors/Verbalizations/Mental Status: [] Eye contact is good. Motor activity is restless. Appearance is casual. Speech is Appropriate. Mood euthymic and positive. Affect is congruent. Thoughts are linear and logical. No evidence of psychosis. Reviewed daily check in sheet and no reports of suicidal ideations or intent. Client Response/Progress/Benefit: [] Pt was an active participant in group discussions. Attentive. Per daily symptom tracker client reports a 0/5 for depression, for anxiety, and agitation. Client stated feeling peaceful this morning. Client reported she is also nervous about being done with IOP today, but recognizes she has come a long way with improved functioning and decreased mental health symptoms. Client noted mental health positive as not feeling anxious for the last couple of days which she noted is not something she is used to experiencing. Client reported additional positive as not having any alcohol urges for the last few days. Benefited from group support, encouragement, and feedback. Progress noted since starting IOP and she will discharge from IOP today.
--- NOTE | 2024-01-20 10:15 | BH.MDN_ITS ---
Multi-Disciplinary Note Note 45-min Individual: Time Started:: 10:15 Date: 01/20/24 Purpose of session/treatment goals addressed:: Reviewed current symptoms and progress in IOP. Reviewed outcomes measurement and aftercare plan. Reviewed emotion management/safety plan. Eye Contact:: Good Motor Activity:: Appropriate Appearance:: Casual Speech:: Appropriate Mood:: Euthymic Affect:: Full Thoughts:: Linear, Logical and No evidence of hallucinations/delusions noted Staff Interventions:: discharge planning and reviewed DSM-5 Client Response:: Pt presents in good spirits today. She completed her crisis/emotion management plan and reviewed with therapist. Was able to identify triggers, warning signs, internal coping skills, external coping skills, supports, and crisis numbers. Able to identify the reason for developing the plan and appropriate times to utilize the plan. Reports improved confidence in her ability to manage emotions. Reports decrease in depression and anxiety. She is concerned about maintaining progress especially when work starts up. 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 She discussed work stressors and discussed possible strategies to incorporate during the school year to be proactive regarding her mental health. Risks/Concerns:: no risks or concerns noted. Daily symptom tracker show no suicidal thoughts. Progress Toward Goals/Plan:: Progress noted. Consistent and engaged in IOP. Outcome measurement shows a 66% reduction in overall symptoms. Outcomes also shows a 66% reduction in the depression domain and a 50% reduction in the anxiety domain. Outcomes also shows improvement in sleep and no suicidal thoughts while in IOP level of care. Since starting IOP pt has completed treatment plan goals which include; re-engaging with 2 family supports (sister, brother), setting several boundaries, practicing assertive communication, identifying and challenging cognitive distortions, beginning a thought log, and completing a crisis/emotion management plan. Pt has set up aftercare counseling with [facility] at her request with appointment scheduled on 02/29/24. This was the earliest appointment she could get for a new patient. She will follow-up with her PCP Dr. George for medication management. Plan to discharge tomorrow. Time Stopped:: 11:15
--- NOTE | 2024-01-20 11:15 | BH.SGPN.GN ---
Behaviors/Verbalizations/Mental Status: [] Eye contact is good. Motor activity is appropriate. Appearance is casual. Speech is Appropriate. Mood is euthymic. Affect is congruent. Thoughts are linear and logical. No evidence of psychosis. Client Response/Progress/Benefit: []Pt responded well to session AEB listening attentively to peers, providing some input, as well as taking notes throughout. Pt contributed throughout psychoeducation on different boundary setting styles. Participated in group discussion brainstorming various strategies for improving healthy boundary settings. Pt reported wanting to work on reminding herself the positive things that have come from setting heathy boundaries and being assertive. ?Seemed to benefit from increased awareness of how different boundary styles can impact mental health. Will continue IOP tx to promote the use of healthy coping skills, increase self-confidence, and establish aftercare. ? Narrative Note: []
--- NOTE | 2024-01-20 15:00 | BH.TPR ---
Treatment Plan Review Demographics Date of Admission:: 12/28/23 Date of Treatment Plan Review:: 01/20/24 Admitting Diagnoses:: 1. Major depressive disorder, recurrent, severe without psychosis 2. Social anxiety disorder 3. PTSD 4. Alcohol use disorder Current Diagnoses:: 1. Major depressive disorder, recurrent, severe without psychosis 2. Social anxiety disorder 3. PTSD 4. Alcohol use disorder (sober x 10 weeks) Patient Status Patient's Response to Treatment:: Significant progress noted. Consistent and engaged throughout IOP. Pt self-reports decreased depression and anxiety. Reports increased coping skills and confidence to manage stressors. Status of Current Problems and Symptoms: Outcome measurement shows a 66% reduction in overall symptoms as well as a 66% reduction in the depression domain and a 50% reduction in the anxiety domain. Outcomes also shows improvement in sleep and no suicidal thoughts while in IOP level of care. Since starting IOP pt has completed treatment plan goals which include; re-engaging with 2 family supports (sister, brother), setting several boundaries, practicing assertive communication, identifying and challenging cognitive distortions, beginning a thought log, and completing a crisis/emotion management plan Progress Problem #1: Problem Name:: Depression Status of Goals:: Outcome measurements show 66% reduction in the depression domain. Pt has denied suicidal ideations since beginning IOP level of care. Obj #1- Completed; Developed a crisis/emotion management plan Obj #2- Completed; Able to identify several commonly used cognitive distortions (absolute thinking, labeling, shoulds/musts) and is able to challenge and reframe Team Recommendations:: Pt has shown significant reduction in symptoms and complete all treatment plan goals. Team agreeable with discharge tomorrow. Problem #2: Problem Name:: Anxeity Status of Goals:: Outcome measurements show a 50% reduction in the anxiety domain. Obj #1- Completed; re-engaging with 2 family supports (sister, brother), setting several boundaries, practicing assertive communication, Able to identify and challenge anxious thoughts. Team Recommendations:: Pt has shown significant reduction in symptoms and complete all treatment plan goals. Team agreeable with discharge tomorrow.
--- NOTE | 2024-01-21 09:02 | BH.SGPN.GN ---
Behaviors/Verbalizations/Mental Status: [] Eye contact good. Motor activity appropriate. Speech within normal limits. Affect congruent, mood euthymic. Thoughts linear, logical, no signs of hallucinations or delusions. Reviewed client?s symptom tracker, denies SI, plan, or intent as of 01/21/2024. Client Response/Progress/Benefit: [] Client receptive of session, attentive and willing to process with group. Identified mental health ?wins? as successfully completing the IOP tx as today is her lasty day, as well as maintaining her sobriety for the past several months. Pt shared that reflecting upon the benefits to her mental health and relationships has helped her to maintain sobriety, as well as the skills she developed throughout IOP tx. Went on to discuss areas of progress and skills she has developed. Discussed improved confidence, change in perspective, and reduced depression. Shared an upcoming stressor in their [employer] January republican but feels more confident going into it this year compared to years past. Receptive of and appearing to benefit from supportive feedback and suggestions provided by the group. Recommended continued outpatient tx to maintain mood stability, promote sobriety, as well as prevent decompensation. Narrative Note: []
--- NOTE | 2024-01-21 09:46 | BH.DS_ITS ---
Discharge Summary Demographics Date of Admission:: 12/28/23 Discharge Date: 01/21/24 Presenting Problems at Admission:: Pt is a 53 year old female with dx of MDD, recurrent, severe w/o psychotic features, Social Anxiety Disorder, and PTSD. Presented to [facility] after recent psychiatric admission to [facility] on 11/06/23 after intentional overdose. Pt denies this was a suicide attempt stating that she took the pills to fall asleep. Pt was intoxicated at the time. Reports worsening depression for the past several months which led to avoidance, isolation, and self-medication with alcohol. Primary triggers include her daughter moving out, being estranged from siblings, and grief related to her parents. I was just so lonely. Believes that her psychiatric admission was helpful. She discharge she is 6 weeks sober and reports increased support and encouragement from family. Continues to endorse poor appetite, low energy, low motivation, hopelessness, worthlessness, isolation, and anhedonia. Denies active suicidal ideations, plan, or intent. Hx of two intentional overdoses in 10/2023. Denies HI or psychosis. Long-standing struggles with alcohol use. She had been sober for 8 years until she relapsed in 2021. Family hx of Schizophrenia (mother). Discharge Diagnoses:: 1. Major depressive disorder, recurrent, severe without psychosis 2. Social anxiety disorder 3. PTSD 4. Alcohol use disorder (sober x 10 weeks) Reason for Discharge:: Pt has shown significant reduction in symptoms based on outcome measurement and self reports. Pt has completed all treatment plan goals. Treatment Progress During Treatment & Response: Pt was consistent and engaged during [facility] admission. Outcome measurement shows a 66% reduction in overall symptoms as well as a 66% reduction in the depression domain and a 50% reduction in the anxiety domain. Outcomes also shows improvement in sleep and no suicidal thoughts while in [facility] level of care. Since starting [facility] pt has completed treatment plan goals which include; re-engaging with 2 family supports (sister, brother), setting several boundaries, practicing assertive communication, identifying and challenging cognitive distortions, beginning a thought log, and completing a crisis/emotion management plan Issues Still to be Addressed:: Relapse Prevention (alcohol). Pt has been sober for 10 weeks. She is hesitant to re-engage in AA due to fear of triggers to use. Would benefit from ongoing counseling for depression, anxiety, boundary setting, and assertive communication. Discharge Recommendations/Instructions:: Pt has intake appointment for counseling at [facility] on 02/29/24. Pt choose this practice and this was the earliest appointment. Medication management with continue with her PCP Dr. George. She declines referral to psychiatrist. Encouraged her to reach out to AA. Discharge Handout
--- NOTE | 2024-01-21 10:10 | BH.SGPN.GN ---
Behaviors/Verbalizations/Mental Status: [] Client alert and oriented, casually dressed and groomed. Eye contact good. Motor activity appropriate. Speech within normal limits. Affect congruent, mood euthymic. Thoughts linear, logical, no signs of hallucinations or delusions. Client Response/Progress/Benefit: [] Client was an active participant, AEB taking notes and providing input in group discussions and activities. Attentive during psychoeducation. Client engaged during interactive discussion in which the group defined self-care and discussed its benefits. Group discussed barriers to engaging in self-care. Group members together came up with guilt, time, urge to put others first, not knowing what to do for self-care,and perception that its unproductive as barriers to engage in self care. Client participated in small groups where they worked to identified and challenged common self-care ?myths?. Benefited from increased awareness of self-care, its benefits, and the consequences of not utilizing self-care strategies. Will continue IOP tx to prevent decompensation/re-admission to psych unit, maintain safety, and increase healthy coping. Narrative Note: []
--- NOTE | 2024-01-21 11:10 | BH.SGPN.GN ---
Behaviors/Verbalizations/Mental Status: [] Client alert and oriented, casually dressed and groomed. Eye contact good. Motor activity appropriate. Speech within normal limits. Affect congruent, mood euthymic and slightly anxious. Thoughts linear, logical, no signs of hallucinations or delusions. Client Response/Progress/Benefit: [] Client engaged participant AEB completing self-assessment of current self care and providing input throughout discussion. Client completed worksheet identifying current self-care practices and what self-care activities client wants to start using. Client selected physical self-care to begin practicing more consistently. Client plans to do this by stretching and getting more exercise. Appeared to benefit from completing the self-care evaluation and gaining insights into current self-care practices, as well as identifying areas in which client would like to improve upon. Client will continue IOP tx to promote use of healthy coping skills, challenge distortions, and prevent decompensation.
== END 2024-01-21 12:27 | disposition home or self-care (01) ==
LOC: BHIOP 08:00
PROVIDERS: PCP Family Medicine; Referring Provider Psychiatry & Neurology Psychiatry; Visit Provider Psychiatry & Neurology Psychiatry
DX: F33.2 Major depressive disorder, recurrent severe without psychotic features (principal); F41.8 Other specified anxiety disorders; F43.10 Post-traumatic stress disorder, unspecified; F10.90 Alcohol use, unspecified, uncomplicated; Z79.899 Other long term (current) drug therapy
CPT/HCPCS: S9480; 90834; 90837; 90853

== ENCOUNTER → 2024-05-03 | Outpatient (CLI) | payer OTHER, SELFPAY ==
--- NOTE | 2024-05-03 13:41 | BI_ITS ---
MAMMOGRAPHY - BILATERAL SCREENING REASON FOR EXAM: Female, 53 years old. Routine annual screening examination. PERTINENT HISTORY: Non-contributory. TECHNIQUE: Digital bilateral breast miguel angel (3D mammographic acquisition) in the CC and MLO projections. 2-D mediolateral oblique (MLO) and craniocaudad (CC) views of both breasts were obtained. CAD: Full Field Digital Mammography with Computer Added Detection was performed. COMPARISON: Comparison is made with prior study April 30, 2023 and May 15, 2022. FINDINGS: Breast Composition: The breasts are heterogeneously dense, which may obscure small masses. There are no dominant masses or suspicious calcifications. No other significant abnormalities are identified. There has been no significant change since the prior study. BI/SCRN MAMM (CAD)W/MIGUEL ANGEL BILAT IMPRESSION: Stable bilateral screening mammogram. Yearly follow-up mammogram recommended. (A) ASSESSMENT CATEGORY: BIRADS Category 1: Negative. A letter regarding these results will be sent to the patient by the facility within 30 days. Approximately 10% of breast cancers are not detected by mammography. A normal mammogram should not delay biopsy of a clinically suspicious abnormality. [id number] Electronically Signed: Cole Amaya MD at 14:45 EDT ,
== END | disposition home or self-care (01) ==
LOC: OPBI 13:41
PROVIDERS: PCP Family Medicine; Referring Provider Obstetrics & Gynecology; Visit Provider Obstetrics & Gynecology
DX: Z12.31 Encounter for screening mammogram for malignant neoplasm of breast (principal)
CPT/HCPCS: 77063; 77067

== ENCOUNTER → 2024-09-12 | Outpatient (CLI) | payer OTHER, SELFPAY ==
--- NOTE | 2024-09-12 13:00 | CT_ITS ---
PROCEDURE: LOW DOSE CT LUNG SCREENING REASON FOR EXAM: Current smoker. Patient has smoked half a pack per day for 15 years. TECHNIQUE: Low Dose CT Lung Screening without contrast COMPARISON: Comparison is made with prior study dated September 09, 2023. FINDINGS: PULMONARY NODULES: (Only nodules >6mm are reported) Nodules described below are on series unless otherwise specified. Pulmonary Nodules: No concerning pulmonary nodules. Hardware:None Lymph Nodes:Stable small benign-appearing mediastinal lymph nodes. Heart and Vasculature:Normal heart size. No pericardial effusion.Thoracic aorta and pulmonary arteries have normal contours; noncontrast technique limits evaluation. Coronary Artery Calcifications: Absent Lungs and Airways: Mild degree of hyperinflation and emphysematous change. Scarring at the lung apices. Pleura:No pleural effusion. No pneumothorax. Upper Abdomen:Visualized portions of the upper abdominal viscera are unremarkable. Bones:Bone windows are unremarkable. CT/Low Dose CT Lung Screening IMPRESSION: 1. BASED ON THE ACR LUNG RADS FOR THE MOST SUSPICIOUS NODULE (IF ANY) DESCRIBE D IN THIS REPORT, THE OVERALL LUNG RADS SCORE IS 2.2 - BENIGN (BASED ON IMAGING FEATURES OR INDOLENT BEHAVIOR). RECOMMEND 12-MON TH SCREENING LDCT.. 2. SMOKING CESSATION COUNSELING IS RECOMMENDED IF THE PATIENT IS STILL SMOKING . 3. OTHER SIGNIFICANT FINDINGSNone. One or more dose reduction techniques were used (e.g., Automated exposure contr ol, adjustment of the mA and/or kV according to patient size, use of iterative reconstruction technique). The following information is provided for reference:Lung-RADS 2021 Assessment C ategories. Additional information involving Lung-RADS is available at www.acr.org. 0-INCOMPLETE 1-NEGATIVE:No nodules or definitely benign nodules. Complete, central, popcorn , or centric ring calcifications OR fat containing 2-BENIGN APPEARANCE (based on imaging features or indolent behavior). Juxtaple ural nodule: < 10mm AND solid; smooth margins; oval, entiform, or triangular shape Solid nodule: <6mm at baseline or new< 4mm Part solid Nodule: < 6mm total mean diameter at baseline Nonsolid nodule:(GGN) < 30mm OR >=30mm stable or slowly growing Airway nodule, subsegmental at baseline, new, or stable Category 3 nodule stabl e or decreased in size at 6-month follow-up CT or Category 3 or 4A nodules that resolve on follow-up OR category 4B findings prov en to be benign following diagnotic work up. 3 - Probably Benign (Based on imaging features or behavior) Solid Nodule: >= 6 to <8mm at baseline OR new 4 to <6mm Part-solid nodule: >= 6mm toal mean diam. with solid component <6mm at baseline OR new < 6mm total mean diam. Non-solid nodule: GGN >= 30mm at baseline or new Atypical pulmonary cyst: Growing cystic component (mean diam.) of thick-walled cyst Category 4A nodule stable or decreased in size at 3-month follow-up CT (excl.ai rway). 4A - Suspicious Solid nodule: >=8 to < 15mm at baseline OR growing < 8mm OR new 6 to < 8mm Part solid nodule: >= 6mm total mean diam. w/ solid component >=6mm to < 8mm at baseline OR new or growing < 4mm solid component Airway nodule, segmental or more proximal at baseline or new Atypical pulmonary cyst: Thick-walled OR multilocular at baseline OR becomes mu ltilocular 4B - Very Suspicious Airway nodule, segmental or more proximal, and stable or growing Solid nodule: >= 15mm at baseline OR new or growing >= 8mm Part solid nodule: Solid component >= 8mm OR new or growing >= 4mm solid compon ent Atypical pulmonary cyst: Thick-walled with growing wall thickness/nodularity OR Growing multilocular (mean diam.) OR Multilocular with increased loculation or new/increased opacity Slow-growing solid or part solid nodule w/ growth over multiple screening exams 4X - Very Suspicious Category 3 or 4 nodules with additional features that increase the suspicion fo r lung cancer. S - Clinically Significant or potentially significant findings (non-lung cancer ) Reading Location: [id number]
== END | disposition home or self-care (01) ==
LOC: CT 12:55
PROVIDERS: PCP Family Medicine; Referring Provider Family Medicine; Visit Provider Family Medicine
DX: Z12.2 Encounter for screening for malignant neoplasm of respiratory organs (principal); F17.210 Nicotine dependence, cigarettes, uncomplicated
CPT/HCPCS: 71271

== ENCOUNTER → 2024-11-25 | Outpatient (CLI) | payer OTHER, SELFPAY ==
[2024-11-25 11:37] LABS: ALB/GLOB Ratio 1.6 RATIO (0.9-2.4); AST(SGOT) 24 U/L (<=31); Alanine Aminotransfer ALT/SGPT 23 U/L (<=34); Albumin, Serum 4.6 g/dL (3.5-5.0); Alkaline Phosphatase 69 U/L (35-104); Anion Gap 13 (5-15); BUN 11 mg/dL (4-19); BUN/Creat Ratio 15.2 RATIO (10-20); Calcium,Total 10.1 mg/dL (7.6-11.0); Carbon Dioxide 22.9 mmol/L (21.0-32.0); Chloride 100 mmol/L (98-108); Cholesterol 278 mg/dL (<=200); Creatinine, Serum 0.74 mg/dL (0.70-1.20); EST Glomerular Filtration Rate 95 (>60); Globulin 2.8 g/dL (2.2-4.2); Glucose 86 mg/dL (70-99); High Density Lipoprotein 53 mg/dL; Low Density Lipoprotein Calc. 203 mg/dL; Potassium 4.3 mmol/L (3.3-5.1); Protein, Total 7.4 g/dL (5.9-8.4); Sodium Level 136 mmol/L (133-145); Triglycerides 111 mg/dL; Very Low Density Lipoprotein 22 mg/dL (5-40); cholesterol:hdl ratio screen 5.22
[2024-11-26 05:50] LABS: Absolute Neutrophil Count 2.5 X10^3/uL (2.0-7.7); Basophil# 0.05 X10^3/uL; Basophil% 0.8 % (0-1); Eosinophil# 0.09 X10^3/uL; Eosinophils% 1.5 % (0-5); Hematocrit 39.8 % (37-47); Hemoglobin 13.5 g/dL (12.0-15.0); Lymphocyte % 47.8 % (19-41); Mean Corp Hgb Conc 33.9 g/dL (32-36); Mean Corpuscular Hgb 30.3 pg (27.0-32.0); Mean Corpuscular Volume 89.4 fL (81-99); Mean Platelet Vol. 9.1 fl (6.2-12.0); Monocyte# 0.51 X10^3/uL; Monocyte% 8.4 % (0-10); NRBC Flagged by Analyzer 0 % (0-5); Neutrophil # 2.51 X10^3/uL (2.7-7.7); Neutrophil % 41.3 % (47-70); Platelet Count 367 K/mm3 (150-450); RBC Distribution Width CV 12.8 % (11.6-14.6); RBC Distribution Width SD 42.5 fl (35.1-43.9); Red Blood Count 4.45 M/mm3 (4.2-5.4); White Blood Count 6.1 K/mm3 (4.4-11.0)
== END | disposition home or self-care (01) ==
LOC: MTLAB 07:15
PROVIDERS: PCP Family Medicine; Referring Provider Family Medicine; Visit Provider Family Medicine
DX: F32.5 Major depressive disorder, single episode, in full remission (principal); E78.9 Disorder of lipoprotein metabolism, unspecified
CPT/HCPCS: 36415; 80053; 80061; 85025

== ENCOUNTER → 2025-01-02 | Outpatient (CLI) | payer OTHER, SELFPAY ==
[2025-01-02 12:59] LABS: AST(SGOT) 28 U/L (<=31); Alanine Aminotransfer ALT/SGPT 26 U/L (<=34); Albumin, Serum 4.6 g/dL (3.5-5.0); Alkaline Phosphatase 72 U/L (35-104); Bilirubin, Direct 0.11 mg/dL (0.00-0.30); Cholesterol 162 mg/dL (<=200); Globulin 2.6 g/dL (2.2-4.2); High Density Lipoprotein 62 mg/dL; Low Density Lipoprotein Calc. 87 mg/dL; Protein, Total 7.2 g/dL (5.9-8.4); Triglycerides 64 mg/dL; Very Low Density Lipoprotein 13 mg/dL (5-40); cholesterol:hdl ratio screen 2.62
== END | disposition home or self-care (01) ==
LOC: MTLAB 09:23
PROVIDERS: PCP Family Medicine; Referring Provider Family Medicine; Visit Provider Family Medicine
DX: E78.9 Disorder of lipoprotein metabolism, unspecified (principal)
CPT/HCPCS: 36415; 80061; 80076

== ENCOUNTER → 2025-05-16 | Outpatient (CLI) | payer OTHER, SELFPAY ==
--- NOTE | 2025-05-16 14:30 | BI_ITS ---
EXAM: SCRN MAMM (CAD)W/MIGUEL ANGEL BILAT DATE: 05/16/2025 CLINICAL HISTORY: F, Age 54 y/o , SCREEN FOR BREAST CANCER TECHNIQUE: Procedure Code: [id number] Modality: MG Procedure: SCRN MAMM (CAD)W/MIGUEL ANGEL BILAT COMPARISON: Prior exam(s) were compared. FINDINGS: TISSUE DENSITY: The breasts are heterogeneously dense, which may obscure small masses. Bilateral Breast Mammographic Findings: No suspicious masses, calcifications or other abnormalities are identified. BI/SCRN MAMM (CAD)W/MIGUEL ANGEL BILAT IMPRESSION: No mammographic evidence of malignancy in either breast. OVERALL FINAL ASSESSMENT BI-RADS 1: NEGATIVE. RECOMMENDATION: Routine annual follow-up in 1 Year Additional Recommendation none A letter with findings and recommendations will be mailed to the patient. Reading Location: [id number]
== END | disposition home or self-care (01) ==
LOC: OPBI 14:15
PROVIDERS: PCP Family Medicine; Referring Provider Obstetrics & Gynecology; Visit Provider Obstetrics & Gynecology
DX: Z12.31 Encounter for screening mammogram for malignant neoplasm of breast (principal)
CPT/HCPCS: 77063; 77067